=== PATIENT | female | born 1970 | race Caucasian/White ===

== ENCOUNTER → 2016-04-27 | Outpatient (CLI) | payer MEDICARE, MEDICAID, OTHER ==
[~2016-04-27] MED LIST: GABA-279 PO; GABA300C3 PO; NUCY75TA8 PO; TYLE1TAB5 PO
--- NOTE | 2016-04-29 00:39 | ECWPNPC ---
PATIENT NAME: HAZEL STANTON : 1970 GENDER: FEMALE VISIT DATE: 04/27/2016 DISCHARGE DATE: 04/27/16 1119 VISIT LOCKED DATE TIME: PHYSICIAN: IVY SILVERMAN RESOURCE: IVY SILVERMAN REASON FOR APPOINTMENT 1. RIGHT SHOULDER PAIN HISTORY OF PRESENT ILLNESS HISTORY OF PRESENT ILLNESS: PAIN THE PATIENT DESCRIBES THE PAIN... 45 YEAR OLD FEMALE PATIENT WITH HISTORY OF CHRONIC SHOULDER PAIN. PATIENT DESCRIBES THE PAIN ACHING, SHARP, THROBBING AND HAVING IT ALL THE TIME WITH A PAIN SCORE OF 10/10. PATIENT RECEIVED TRIGGER POINT INJECTIONS ON 03/30/16 AND REPORTS ONLY HAVING RELIEF FOR A FEW DAYS. MRS. STANTON STATES THAT A FEW DAYS AFTER THE INJECTION THE PAIN RETURNED AND BECAME VERY SEVERE AND HAS NOT HAD RELIEF SINCE. PATIENT REPORTS NOT GETTING RELIEF FROM THE INTERVENTIONS OR MEDICATIONS AND REPORTS HAVING A VERY DIFFICULT TIME SLEEPING DUE TO THE PAIN. CURRENTLY THE PATIENT IS USING NUCYNTA, GABAPENTIN, TYLENOL AND OXYCODONE AND STATES THAT IT IS NOT GIVING RELIEF FOR THE RIGHT SHOULDER. MRS. STANTON STATES THAT ANY TYPE OF MOVEMENT INCREASES THE PAIN AND IT IS VERY DIFFICULT FOR THE PATIENT TO GET COMFORTABLE. PATIENT DENIES UNEXPLAINABLE WEIGHT LOSS, FEVER, CHILLS, NEW CHANGES ON HER URINARY OR BOWEL CONTROL. FALL RISK SCREENING: SCREENING :NO FALLS IN THE PAST YEAR CURRENT MEDICATIONS TAKING CYMBALTA 30 MG CAPSULE DELAYED RELEASE PARTICLES 1 CAPSULE ORALLY ONCE A DAY, NOTES: 03/30/16 0600 TAKING GABAPENTIN 300 MG TABLET 1 TAB ORALLY QHS, NOTES: 03/29/161999 TAKING TIZANIDINE HCL 2 MG TABLET 1 TABLET NEEDED ORALLY BEFORE BEDTIME MAY REPEAT 4 HRS LATER MDD2, NOTES: 03/29/16 0130 TAKING TYLENOL PM EXTRA STRENGTH 500-25 MG TABLET 1 TABLET AT BEDTIME NEEDED ORALLY ONCE A DAY, NOTES: 03/29/161999 TAKING OXYCODONE-ACETAMINOPHEN 7.5-325 MG TABLET 1 TABLET NEEDED FOR PAIN ORALLY FOR PAIN EVERY 8 HRS MDD3, NOTES: 03/30/16 0900 TAKING SOMA 350 MG TABLET 1 TABLET NEEDED ORALLY Q8H PRN MDD3 TAKING NUCYNTA 75 MG TABLET 1 TABLET ORALLY THREE TIMES DAILY NEEDED TAKING DICLOFENAC SODIUM CR COMPOUND CREAM TOPICALLY 3-4 X/DAY, NOTES: COMPOUND CREAM MEDICATION LIST REVIEWED AND RECONCILED WITH THE PATIENT PAST MEDICAL HISTORY CRPS LEFT WRIST AND FOREARM UTERINE FIBROIDS ALLERGIES PENICILLIN (FOR ALLERGIES USE ONLY): RASH ULTRACET: ITCHING RHINOCORT NASAL: SWELLING SURGICAL HISTORY DCS 2006 GASTRIC BYPASS, TUBAL,,LSO,FIBROIDS DCS RE- PLACEMENT 10/28/15 FAMILY HISTORY NO FAMILY HISTORY DOCUMENTED. SOCIAL HISTORY GENERAL: TOBACCO USE ARE YOU A:CURRENT SMOKER HOW MANY CIGARETTES A DAY DO YOU SMOKE?21-30 HOW SOON AFTER YOU WAKE UP DO YOU SMOKE YOUR FIRST CIGARETTE?31-60 MIN HOW OFTEN DO YOU SMOKE CIGARETTES?EVERY DAY PATIENT COUNSELED ON THE DANGERS OF TOBACCO USE AND URGED TO QUIT: CONCELED ON THE IMPORTANCE OF QUITTING. PT STATES SHE IS NOT READY AT THIS TIME ARE YOU INTERESTED IN QUITTING?NOT READY TO QUIT LEARNING BARRIERS / SPECIAL NEEDS ORIENTED TO PLAN OF CARE: PATIENT, PAIN MANAGEMENT PATIENT, ORIENTED TO PLAN OF CARE: PATIENT, PAIN MANAGEMENT PATIENT. NEW PATIENT PAIN DIARY TODAY'S VISITNOTES FROM 0-10, WHAT LEVEL IS YOUR PAIN TODAY?0 PAIN CLINIC PFS, CLERGY, PUBLIC HEALTH REFERRALS PFS REFERRAL NEEDED?NO CLERGY REFERRAL NEEDED?NO PUBLIC HEALTH REFERRAL NEEDED?NO WAS THE PROVIDER NOTIFIED OF ANY PERTINENT INFO?NO PFS REFERRAL NEEDED?NO CLERGY REFERRAL NEEDED?NO PUBLIC HEALTH REFERRAL NEEDED?NO WAS THE PROVIDER NOTIFIED OF ANY PERTINENT INFO?NO HOSPITALIZATION/MAJOR DIAGNOSTIC PROCEDURE SURG RELATED REVIEW OF SYSTEMS CONSTITUTIONAL: ANY CHANGE IN YOUR MEDICAL CONDITION? NO . CHILLS NO . FEVER NO . INFECTION: DO YOU HAVE NEW INFECTIONS? NO . DO YOU HAVE HISTORY OF MRSA? NO . MUSCULOSKELETAL: ANY NEW PATTERNS OF PAIN OR NUMBNESS? YES BILAT NECK AND RIGHT SHOULDER RADIATING DOWN RIGHT BACK . GASTROENTEROLOGY: ANY NEW CHANGE IN BOWEL CONTROL? NO . GENITOURINARY: ANY NEW CHANGE IN BLADDER CONTROL? NO . IS THERE A CHANCE YOU COULD BE ? NO . HEMATOLOGY/LYMPH: DO YOU TAKE ANY BLOOD THINNERS? (FOR EXAMPLE- COUMADIN, PLAVIX, AGGRENOX, PLATEL, PRADAXA, OR XARELTO) NO . WHEN WAS YOUR LAST DOSE? DATE: TIME: . NEUROLOGY: HAVE YOU FALLEN IN THE PAST 6 MONTHS? NO . ANY NEW EXTREMITY NUMBNESS OR WEAKNESS? NO . CARDIOLOGY: DO YOU HAVE A PACEMAKER OR DEFIBRILLATOR? NO . RESPIRATORY: HAVE YOU BEEN SICK IN THE PAST WEEK? NO . FEVER NO . FLU LIKE SYMPTOMS? NO . COUGH NO . INTEGUMENTARY: DO YOU HAVE ANY RASHES OR OPEN SORES? NO . ALLERGIC/IMMUNO: ARE YOU ALLERGIC TO SHELLFISH OR IV DYE? NO . ANY NEW ALLERGIES? NO . PSYCHIATRIC: DO YOU HAVE THOUGHTS OF HURTING YOURSELF OR SOMEONE ELSE? NO . ARE YOU ABUSED, NEGLECTED, OR IN AN UNSAFE ENVIRONMENT? NO . ENDOCRINOLOGY: ARE YOU DIABETIC? NO . OTHER: DO YOU NEED ANY PRESCRIPTIONS? YES SOMA, PERCOCET . IF YES, PLEASE LIST: ____ . ANY NEW PROBLEMS WITH YOUR MEDICATIONS? NO . WHEN DID YOU LAST EAT? ____ . WHEN DID YOU LAST DRINK? ____ . WHAT DID YOU LAST DRINK? ____ . NAME OF PERSON DRIVING YOU HOME? ____ . DO YOU HAVE ANY OTHER QUESTIONS OR CONCERNS NO . REVIEWED BY: PROVIDER: IVY SILVERMAN MD . VITAL SIGNS WT 152 LBS, HT 66 IN, BMI 24.53 INDEX, BP 152/104 MM HG, REPEAT BP 130/82 MM HG, HR 102 /MIN, RR 18 /MIN, TEMP 96.0 F, OXYGEN SAT % 98, NA INITIALS TL 0928, REVIEWED BY: CARLI BP, PT STATES SHE IS A LOT PAIN- TL. EXAMINATION : PATIENT IS ALERT O X 3 AND COOPERATIVE. TENDERNESS IN RIGHT CERVICAL AREA AND RIGHT SHOULDER AREA. PATIENT ABLE TO ABDUCT RIGHT SHOULDER 90 DEGREE AND LEFT 120 DEGREE. BANDS OF TISSUE, RESTRICTION OF MOVEMENT AND PRESENCE OF TRIGGER POINTS IN THE RIGHT SHOULDER AREA. PENDING MRI/CT OF THE RIGHT SHOULDER. ASSESSMENTS MYALGIA - M79.1 (PRIMARY) TREATMENT MYALGIA REFILL CYMBALTA CAPSULE DELAYED RELEASE PARTICLES, 30 MG, 1 CAPSULE, ORALLY, BID FOR PAIN, 30 DAY(S), 60, REFILLS 2, NOTES: 03/30/16 0600 REFILL GABAPENTIN TABLET, 300 MG, 1 TAB, ORALLY, QHS FOR PAIN, 30 DAY(S), 30, REFILLS 2, NOTES: 03/29/16 2000 REFILL TIZANIDINE HCL TABLET, 4 MG, 1 TABLET NEEDED, ORALLY, BEFORE BEDTIME MAY REPEAT 4 HRS LATER MDD2, 30 DAY(S), 50, REFILLS 1, NOTES: 03/29/16 0130 REFILL OXYCODONE-ACETAMINOPHEN TABLET, 10-325 MG, 1 TABLET NEEDED FOR PAIN, ORALLY, EVERY 8 HRS MDD3, 30 DAYS, 80, REFILLS 0, NOTES: 03/30/16 0900 REFILL SOMA TABLET, 350 MG, 1 TABLET NEEDED, ORALLY, BEFORE BEDTIME NEEDED FOR SPASMS AND PAIN, 30 DAY(S), 20, REFILLS 0 REFILL NUCYNTA TABLET, 75 MG, 1 TABLET, ORALLY, THREE TIMES DAILY NEEDED NOTES: WE DISCUSSED SEVERAL ISSUES WITH MRS. STANTON'S PAIN MANAGEMENT CASE. AT THIS TIME THE PATIENT WILL CONTINUE WITH THE SAME MEDICATION REGIME BEFORE. PATIENT DENIES ABUSE OF MEDICATION, DENIES USE OF ILLEGAL SUBSTANCES, AND STATES THAT SHE IS ONLY USING THE MEDICATION FOR PAIN MANAGEMENT. URINE TOXICOLOGY REPORT DONE ONE 03/10/16 SHOWS CONSISTENT RESULTS WITH THE PATIENTS MEDICATION LIST. PATIENT REPORTS ONLY GETTING 2-3 DAYS OF RELIEF WITH THE TRIGGER POINT INJECTION. I WOULD LIKE TO REQUEST AUTHORIZATION FOR BOTOX IN THE RIGHT SHOULDER TO SEE IF IT WILL GIVE THE PATIENT LONGER LASTING RELIEF. WE DISCUSSED THE RISKS, BENEFITS, AND ALTERNATIVES TO THE INJECTION AND THE PATIENT WOULD LIKE TO PROCEED. I WOULD ALSO LIKE THE PATIENT TO HAVE AN MRI DONE OF THE RIGHT SHOULDER. PATIENT WILL ALSO START PHYSICAL THERAPY TO SEE IF THAT WILL ASSIST WITH THE MUSCLE SPASMS THROUGHOUT THE BACK. I AM ALSO GOING TO SPEAK WITH THE RISK INVESTIGATOR FROM [employer] TO SEE HOW OFTEN A PATIENT CAN GET BOTOX DUE TO THE PATIENT RECEIVING BOTOX FOR HER MIGRAINES. INSTRUCTIONS WERE GIVEN, QUESTIONS WERE ANSWERED, PATIENT REPORTS UNDERSTANDING AND AGREES WITH THE PLAN. I, ALEC MOSELEY, DOCUMENTED THE ABOVE INFORMATION ACTING A SCRIBE FOR DR. SILVERMAN. I HAVE REVIEWED THE ABOVE DOCUMENT, WRITTEN BY ALEC ZAMBRANO AND I VERIFY THAT IT IS ACCURATE. PROCEDURE CODES FA211 ESTABILISHED PATIENT [facility] FACILITY CHARGE G8427 DOC MEDS VERIFIED W/PT OR RE G8730 PAIN ASSESS POS TOOL F/U PLAN DOC FOLLOW UP 4 WEEKS ELECTRONICALLY SIGNED BY IVY SILVERMAN MD ON 04/28/2016 AT 08:23 PM EST DISCLAIMER : THIS IS A VISIT SUMMARY EXTRACTED FROM THE [employer] CHART. IT IS NOT A COPY OF THE [employer] PROGRESS NOTE. EVAN
== END ==
LOC: M PAIN 09:20
PROVIDERS: ATTEND Anesthesiology
DX: Z09 Encounter for follow-up examination after completed treatment for conditions other than malignant neoplasm (principal); M79.1 Myalgia; G89.29 Other chronic pain; M25.511 Pain in right shoulder; F17.200 Nicotine dependence, unspecified, uncomplicated; Z88.0 Allergy status to penicillin; Z88.8 Allergy status to other drugs, medicaments and biological substances; Z79.891 Long term (current) use of opiate analgesic; Z79.899 Other long term (current) drug therapy

== ENCOUNTER → 2016-05-21 | Outpatient (CLI) | payer MEDICARE, MEDICAID, OTHER ==
--- NOTE | 2016-05-22 00:55 | ECWPNPC ---
PATIENT NAME: HAZEL STANTON : 1970 GENDER: FEMALE VISIT DATE: 05/21/2016 DISCHARGE DATE: 05/21/16 1312 VISIT LOCKED DATE TIME: PHYSICIAN: BRANDON CAMPBELL RESOURCE: BRANDON CAMPBELL REASON FOR APPOINTMENT 1. RIGHT SHOULDER HISTORY OF PRESENT ILLNESS HISTORY OF PRESENT ILLNESS: PAIN THE PATIENT DESCRIBES THE PAIN... THE PATIENT DESCRIBES THE PAIN... 45 YEAR OLD FEMALE PATIENT WITH HISTORY OF CHRONIC SHOULDER PAIN. PATIENT DESCRIBES THE PAIN ACHING, SHARP, THROBBING AND HAVING IT ALL THE TIME WITH A PAIN SCORE OF 10/10.THIS PAIN BEGAN AFTER REVISION OF DCS OCTOBER 2015. PATIENT RECEIVED TRIGGER POINT INJECTIONS ON 03/30/16 AND REPORTS ONLY HAVING RELIEF FOR A FEW DAYS. MRS. STANTON STATES THAT A FEW DAYS AFTER THE INJECTION THE PAIN RETURNED AND BECAME VERY SEVERE AND HAS NOT HAD RELIEF SINCE. PATIENT REPORTS NOT GETTING RELIEF FROM THE INTERVENTIONS OR MEDICATIONS AND REPORTS HAVING A VERY DIFFICULT TIME SLEEPING DUE TO THE PAIN. CURRENTLY THE PATIENT IS USING NUCYNTA, GABAPENTIN, TYLENOL AND OXYCODONE AND STATES THAT IT IS NOT GIVING RELIEF FOR THE RIGHT SHOULDER. STARTED OXYCODONE 10/325 LAST MOS. AND PATIENT HAD VOMITING WITH IT SO SHE STOPPED THIS.MRS. STANTON STATES THAT ANY TYPE OF MOVEMENT INCREASES THE PAIN AND IT IS VERY DIFFICULT FOR THE PATIENT TO GET COMFORTABLE. PATIENT DENIES UNEXPLAINABLE WEIGHT LOSS, FEVER, CHILLS, NEW CHANGES ON HER URINARY OR BOWEL CONTROL. REPORTING IMPROVEMENT WITH PAIN WITH SOMA. FALL RISK SCREENING: SCREENING :NO FALLS IN THE PAST YEAR CURRENT MEDICATIONS TAKING TYLENOL PM EXTRA STRENGTH 500-25 MG TABLET 1 TABLET AT BEDTIME NEEDED ORALLY ONCE A DAY, NOTES: 03/29/161999 TAKING DICLOFENAC SODIUM CR COMPOUND CREAM TOPICALLY 3-4 X/DAY, NOTES: COMPOUND CREAM TAKING CYMBALTA 30 MG CAPSULE DELAYED RELEASE PARTICLES 1 CAPSULE ORALLY BID FOR PAIN, NOTES: 03/30/16 0600 TAKING GABAPENTIN 300 MG TABLET 1 TAB ORALLY QHS FOR PAIN, NOTES: 03/29/161999 TAKING TIZANIDINE HCL 4 MG TABLET 1 TABLET NEEDED ORALLY BEFORE BEDTIME MAY REPEAT 4 HRS LATER MDD2, NOTES: 03/29/16 0130 TAKING OXYCODONE-ACETAMINOPHEN 10-325 MG TABLET 1 TABLET NEEDED FOR PAIN ORALLY EVERY 8 HRS MDD3, NOTES: 12/19/16 0900 TAKING SOMA 350 MG TABLET 1 TABLET NEEDED ORALLY BEFORE BEDTIME NEEDED FOR SPASMS AND PAIN TAKING NUCYNTA 75 MG TABLET 1 TABLET ORALLY THREE TIMES DAILY NEEDED FOR PAIN MDD3 MEDICATION LIST REVIEWED AND RECONCILED WITH THE PATIENT PAST MEDICAL HISTORY CRPS LEFT WRIST AND FOREARM UTERINE FIBROIDS ALLERGIES PENICILLIN (FOR ALLERGIES USE ONLY): RASH ULTRACET: ITCHING RHINOCORT NASAL: SWELLING SOCIAL HISTORY GENERAL: TOBACCO USE ARE YOU A:NONSMOKER LEARNING BARRIERS / SPECIAL NEEDS ORIENTED TO PLAN OF CARE: PATIENT, PAIN MANAGEMENT PATIENT, ORIENTED TO PLAN OF CARE: PATIENT, PAIN MANAGEMENT PATIENT. NEW PATIENT PAIN DIARY TODAY'S VISITNOTES FROM 0-10, WHAT LEVEL IS YOUR PAIN TODAY?0 PAIN CLINIC PFS, CLERGY, PUBLIC HEALTH REFERRALS PFS REFERRAL NEEDED?NO CLERGY REFERRAL NEEDED?NO PUBLIC HEALTH REFERRAL NEEDED?NO WAS THE PROVIDER NOTIFIED OF ANY PERTINENT INFO?NO PFS REFERRAL NEEDED?NO CLERGY REFERRAL NEEDED?NO PUBLIC HEALTH REFERRAL NEEDED?NO WAS THE PROVIDER NOTIFIED OF ANY PERTINENT INFO?NO REVIEW OF SYSTEMS CONSTITUTIONAL: ANY CHANGE IN YOUR MEDICAL CONDITION? NO . RECENT ILLNESS DENIES . CHILLS NO . FEVER NO . WEIGHT LOSS DENIES . INFECTION: DO YOU HAVE NEW INFECTIONS? NO . DO YOU HAVE HISTORY OF MRSA? NO . MUSCULOSKELETAL: ANY NEW PATTERNS OF PAIN OR NUMBNESS? NO . GASTROENTEROLOGY: ANY NEW CHANGE IN BOWEL CONTROL? NO . GENITOURINARY: ANY NEW CHANGE IN BLADDER CONTROL? NO . IS THERE A CHANCE YOU COULD BE ? NO . HEMATOLOGY/LYMPH: DO YOU TAKE ANY BLOOD THINNERS? (FOR EXAMPLE- COUMADIN, PLAVIX, AGGRENOX, PLATEL, PRADAXA, OR XARELTO) NO . WHEN WAS YOUR LAST DOSE? DATE: TIME: . NEUROLOGY: HAVE YOU FALLEN IN THE PAST 6 MONTHS? NO . ANY NEW EXTREMITY NUMBNESS OR WEAKNESS? NO . CARDIOLOGY: DO YOU HAVE A PACEMAKER OR DEFIBRILLATOR? NO . CHEST PAIN DENIES . SHORTNESS OF BREATH DENIES . RESPIRATORY: HAVE YOU BEEN SICK IN THE PAST WEEK? NO . FEVER NO . FLU LIKE SYMPTOMS? NO . COUGH NO, DENIES . SHORTNESS OF BREATH DENIES . INTEGUMENTARY: DO YOU HAVE ANY RASHES OR OPEN SORES? NO . ALLERGIC/IMMUNO: ARE YOU ALLERGIC TO SHELLFISH OR IV DYE? NO . ANY NEW ALLERGIES? NO . PSYCHIATRIC: DO YOU HAVE THOUGHTS OF HURTING YOURSELF OR SOMEONE ELSE? NO . ARE YOU ABUSED, NEGLECTED, OR IN AN UNSAFE ENVIRONMENT? NO . ENDOCRINOLOGY: ARE YOU DIABETIC? NO . OTHER: DO YOU NEED ANY PRESCRIPTIONS? YES, . IF YES, PLEASE LIST: PERCOCETS, CARISOPRADOL 350MG . ANY NEW PROBLEMS WITH YOUR MEDICATIONS? YES, PERCOCETS 10/325 MAKE HER UPSET AND VOMIT. CAN THEY BE DECREASED TO 7.5/325MG? . WHEN DID YOU LAST EAT? ____ . WHEN DID YOU LAST DRINK? ____ . WHAT DID YOU LAST DRINK? ____ . NAME OF PERSON DRIVING YOU HOME? ____ . DO YOU HAVE ANY OTHER QUESTIONS OR CONCERNS NO . REVIEWED BY: PROVIDER: BRANDON FREIRE . VITAL SIGNS WT 142 LBS, HT 66 IN, BMI 22.92 INDEX, BP 136/82 MM HG, HR 74 /MIN, RR 16 /MIN, TEMP 96.2 F, OXYGEN SAT % 98%, NA INITIALS CM. EXAMINATION GENERAL EXAMINATION: LUNGS:LUNG SOUNDS ARE CLEAR. HEART:HEART RATE REGULAR. MUSCULOSKELETAL:*PAIN WITH LIGHT PALPATION RIGHT SHOULDE.POSITIVE FOR TRIGGER POINT RIGHT TRAPEZIUS AND RIGHT STERNOCLEIDOMASTOID.PAIN IN THIS AREA IS INCREASED WITH ROJM RIGHT ARM AND NECK.. ASSESSMENTS PAIN IN RIGHT SHOULDER - M25.511 (PRIMARY) MYOFASCIAL PAIN - M79.1 CHRONIC PRESCRIPTION OPIATE USE - Z79.891 TREATMENT PAIN IN RIGHT SHOULDER STOP TIZANIDINE HCL TABLET, 4 MG, 1 TABLET NEEDED, ORALLY, BEFORE BEDTIME MAY REPEAT 4 HRS LATER MDD2, NOTES: 03/29/16 0130 REFILL SOMA TABLET, 350 MG, 1 TABLET NEEDED, ORALLY, Q8H PRN MDD3, 30 DAY(S), 90, REFILLS 2 START PERCOCET TABLET, 7.5-325 MG, 1, ORALLY, EVERY 8H PRN MDD3, 30 DAY(S), 60, REFILLS [address]-SHOULDER WITHOUT [id number] PROCEDURE CODES FA211 ESTABILISHED PATIENT [facility] FACILITY CHARGE G8730 PAIN ASSESS POS TOOL F/U PLAN DOC G8427 DOC MEDS VERIFIED W/PT OR RE FOLLOW UP 4 WEEKS ELECTRONICALLY SIGNED BY MOUNA CHEN ON 05/21/2016 AT 01:28 PM EST DISCLAIMER : THIS IS A VISIT SUMMARY EXTRACTED FROM THE [employer] CHART. IT IS NOT A COPY OF THE [employer] PROGRESS NOTE. EVAN
== END ==
LOC: M PAIN 11:20
PROVIDERS: ATTEND Nurse Practitioner Family
DX: Z09 Encounter for follow-up examination after completed treatment for conditions other than malignant neoplasm (principal); G89.29 Other chronic pain; M25.511 Pain in right shoulder; M79.1 Myalgia; Z88.0 Allergy status to penicillin; Z88.8 Allergy status to other drugs, medicaments and biological substances; Z79.891 Long term (current) use of opiate analgesic; Z79.899 Other long term (current) drug therapy

== ENCOUNTER → 2016-05-21 | Outpatient (CLI) | payer MEDICARE, MEDICAID ==
--- NOTE | 2016-05-22 00:56 | ECWPNPC ---
PATIENT NAME: HAZEL STANTON : 1970 GENDER: FEMALE VISIT DATE: 05/21/2016 DISCHARGE DATE: 05/21/16 1225 VISIT LOCKED DATE TIME: PHYSICIAN: IVY SILVERMAN RESOURCE: IVY SILVERMAN REASON FOR APPOINTMENT 1. W/C HISTORY OF PRESENT ILLNESS HISTORY OF PRESENT ILLNESS: PAIN THE PATIENT DESCRIBES THE PAIN... FALL RISK SCREENING: SCREENING :NO FALLS IN THE PAST YEAR CURRENT MEDICATIONS TAKING TYLENOL PM EXTRA STRENGTH 500-25 MG TABLET 1 TABLET AT BEDTIME NEEDED ORALLY ONCE A DAY, NOTES: 03/29/161999 TAKING DICLOFENAC SODIUM CR COMPOUND CREAM TOPICALLY 3-4 X/DAY, NOTES: COMPOUND CREAM TAKING CYMBALTA 30 MG CAPSULE DELAYED RELEASE PARTICLES 1 CAPSULE ORALLY BID FOR PAIN, NOTES: 03/30/16 0600 TAKING GABAPENTIN 300 MG TABLET 1 TAB ORALLY QHS FOR PAIN, NOTES: 03/29/161999 TAKING TIZANIDINE HCL 4 MG TABLET 1 TABLET NEEDED ORALLY BEFORE BEDTIME MAY REPEAT 4 HRS LATER MDD2, NOTES: 03/29/16 0130 TAKING OXYCODONE-ACETAMINOPHEN 10-325 MG TABLET 1 TABLET NEEDED FOR PAIN ORALLY EVERY 8 HRS MDD3, NOTES: 03/30/16 0900 TAKING SOMA 350 MG TABLET 1 TABLET NEEDED ORALLY BEFORE BEDTIME NEEDED FOR SPASMS AND PAIN TAKING NUCYNTA 75 MG TABLET 1 TABLET ORALLY THREE TIMES DAILY NEEDED MEDICATION LIST REVIEWED AND RECONCILED WITH THE PATIENT PAST MEDICAL HISTORY CRPS LEFT WRIST AND FOREARM UTERINE FIBROIDS ALLERGIES PENICILLIN (FOR ALLERGIES USE ONLY): RASH ULTRACET: ITCHING RHINOCORT NASAL: SWELLING SOCIAL HISTORY GENERAL: TOBACCO USE ARE YOU A:NONSMOKER LEARNING BARRIERS / SPECIAL NEEDS ORIENTED TO PLAN OF CARE: PATIENT, PAIN MANAGEMENT PATIENT, ORIENTED TO PLAN OF CARE: PATIENT, PAIN MANAGEMENT PATIENT. NEW PATIENT PAIN DIARY TODAY'S VISITNOTES FROM 0-10, WHAT LEVEL IS YOUR PAIN TODAY?0 PAIN CLINIC PFS, CLERGY, PUBLIC HEALTH REFERRALS PFS REFERRAL NEEDED?NO CLERGY REFERRAL NEEDED?NO PUBLIC HEALTH REFERRAL NEEDED?NO WAS THE PROVIDER NOTIFIED OF ANY PERTINENT INFO?NO PFS REFERRAL NEEDED?NO CLERGY REFERRAL NEEDED?NO PUBLIC HEALTH REFERRAL NEEDED?NO WAS THE PROVIDER NOTIFIED OF ANY PERTINENT INFO?NO REVIEW OF SYSTEMS CONSTITUTIONAL: ANY CHANGE IN YOUR MEDICAL CONDITION? NO . CHILLS NO . FEVER NO . INFECTION: DO YOU HAVE NEW INFECTIONS? NO . DO YOU HAVE HISTORY OF MRSA? NO . MUSCULOSKELETAL: ANY NEW PATTERNS OF PAIN OR NUMBNESS? NO . GASTROENTEROLOGY: ANY NEW CHANGE IN BOWEL CONTROL? NO . GENITOURINARY: ANY NEW CHANGE IN BLADDER CONTROL? NO . IS THERE A CHANCE YOU COULD BE ? NO . HEMATOLOGY/LYMPH: DO YOU TAKE ANY BLOOD THINNERS? (FOR EXAMPLE- COUMADIN, PLAVIX, AGGRENOX, PLATEL, PRADAXA, OR XARELTO) NO . WHEN WAS YOUR LAST DOSE? DATE: TIME: . NEUROLOGY: HAVE YOU FALLEN IN THE PAST 6 MONTHS? NO . ANY NEW EXTREMITY NUMBNESS OR WEAKNESS? NO . CARDIOLOGY: DO YOU HAVE A PACEMAKER OR DEFIBRILLATOR? NO . RESPIRATORY: HAVE YOU BEEN SICK IN THE PAST WEEK? NO . FEVER NO . FLU LIKE SYMPTOMS? NO . COUGH NO . INTEGUMENTARY: DO YOU HAVE ANY RASHES OR OPEN SORES? NO . ALLERGIC/IMMUNO: ARE YOU ALLERGIC TO SHELLFISH OR IV DYE? NO . ANY NEW ALLERGIES? NO . PSYCHIATRIC: DO YOU HAVE THOUGHTS OF HURTING YOURSELF OR SOMEONE ELSE? NO . ARE YOU ABUSED, NEGLECTED, OR IN AN UNSAFE ENVIRONMENT? NO . ENDOCRINOLOGY: ARE YOU DIABETIC? NO . OTHER: DO YOU NEED ANY PRESCRIPTIONS? NO . IF YES, PLEASE LIST: ____ . ANY NEW PROBLEMS WITH YOUR MEDICATIONS? NO . WHEN DID YOU LAST EAT? ____ . WHEN DID YOU LAST DRINK? ____ . WHAT DID YOU LAST DRINK? ____ . NAME OF PERSON DRIVING YOU HOME? ____ . DO YOU HAVE ANY OTHER QUESTIONS OR CONCERNS YES, WANT TO DROP PERCOCETS DOWN TO 7,5/325 MG THE 10'S MAKE ME VOMIT.&NBSP;. REVIEWED BY: PROVIDER: . VITAL SIGNS WT 142 LBS, HT 66 IN, BMI 22.92 INDEX, BP 136/82 MM HG, HR 74 /MIN, RR 16 /MIN, TEMP 96.2 F, OXYGEN SAT % 98, NA INITIALS TL 1023, REVIEWED BY: DENISSE. ASSESSMENTS MYALGIA - M79.1 TREATMENT MYALGIA REFILL NUCYNTA TABLET, 75 MG, 1 TABLET, ORALLY, THREE TIMES DAILY NEEDED FOR PAIN MDD3, 30 DAYS, 30, REFILLS 0 PROCEDURE CODES FA211 ESTABILISHED PATIENT [facility] CHARGE ELECTRONICALLY SIGNED BY IVY SILVERMAN MD ON 05/21/2016 AT 12:24 PM EST DISCLAIMER : THIS IS A VISIT SUMMARY EXTRACTED FROM THE [employer] CHART. IT IS NOT A COPY OF THE [employer] PROGRESS NOTE. EVAN
== END ==
LOC: M PAIN 10:00
PROVIDERS: ATTEND Anesthesiology
DX: M79.1 Myalgia (principal); G89.29 Other chronic pain; M25.511 Pain in right shoulder; Z79.891 Long term (current) use of opiate analgesic; Z79.899 Other long term (current) drug therapy; Z88.0 Allergy status to penicillin; Z88.8 Allergy status to other drugs, medicaments and biological substances

== ENCOUNTER → 2016-06-16 | Outpatient (CLI) | payer OTHER, MEDICARE, MEDICAID ==
--- NOTE | 2016-06-27 23:39 | ECWPNPC ---
PATIENT NAME: HAZEL STANTON : 1970 GENDER: FEMALE VISIT DATE: 06/16/2016 DISCHARGE DATE: 06/16/16 1015 VISIT LOCKED DATE TIME: PHYSICIAN: IVY SILVERMAN RESOURCE: IVY SILVERMAN REASON FOR APPOINTMENT 1. W/C LEFT WRIST, FOREARM, NECK, MIGRAINES HISTORY OF PRESENT ILLNESS HISTORY OF PRESENT ILLNESS: PAIN THE PATIENT DESCRIBES THE PAIN... 45 YEAR OLD FEMALE PATIENT WITH HISTORY OF CHRONIC LEFT WRIST, FOREARM, NECK, AND MIGRAINES PAIN. PATIENT DESCRIBES THE PAIN ACHING, AND THROBBING WITH A PAIN SCORE OF 8/10 ON TODAY'S VISIT. PATIENT WAS INJURED IN A WORK RELATED INJURY ON 06/19/2003 WORKING FOR [employer], WHEN SHE TRIPPED AND FELLING INJURING HER LEFT WRIST, AND FOREARM. PATIENT REPORTS THAT SHE STARTED TO HAVE NECK PAIN AFTER THE DCS WAS PUT IN. PATIENT STATES THAT HER NECK ON THE LEFT SIDE HURTS THE MOST WITH PAIN RADIATING TO THE TOP OF HER HEAD. PATIENT STATES THAT SHE WAS GETTING ABOUT 30 HEADACHES A MONTH AND SINCE SHE HAS BEEN GETTING BOTOX INJECTIONS HER HEADACHES HAS GONE DOWN TO 13 A MONTH. PATIENT REPORTS THAT WHEN SHE GETS A HEADACHE SHE SUFFERS FROM NAUSEA AND LIGHTS HURTS HER EYES. PATIENT REPORTS THAT SHE HAS TRIED AMITRIPTYLINE, GABAPENTIN, TOPAMAX, TOPIRAMATE, ACETAMINOPHEN, AND RIZATRIPTAN WITHOUT ANY SUCCESS OF RELIEF FROM HEADACHES AND MIGRAINES. PATIENT REPORTS THAT SHE CAN NOT TAKE IBUPROFEN AND ASPIRIN. , PATIENT DENIES UNEXPLAINABLE WEIGHT LOSS, FEVER, CHILLS, NEW CHANGES ON HER URINARY OR BOWEL CONTROL. FALL RISK SCREENING: SCREENING :NO FALLS IN THE PAST YEAR CURRENT MEDICATIONS TAKING TYLENOL PM EXTRA STRENGTH 500-25 MG TABLET 1 TABLET AT BEDTIME NEEDED ORALLY ONCE A DAY, NOTES: 03/29/161999 TAKING DICLOFENAC SODIUM CR COMPOUND CREAM TOPICALLY 3-4 X/DAY, NOTES: COMPOUND CREAM TAKING CYMBALTA 30 MG CAPSULE DELAYED RELEASE PARTICLES 1 CAPSULE ORALLY BID FOR PAIN, NOTES: 03/30/16 0600 TAKING GABAPENTIN 300 MG TABLET 1 TAB ORALLY QHS FOR PAIN, NOTES: 03/29/161999 TAKING NUCYNTA 75 MG TABLET 1 TABLET ORALLY THREE TIMES DAILY NEEDED FOR PAIN MDD3 TAKING SOMA 350 MG TABLET 1 TABLET NEEDED ORALLY Q8H PRN MDD3 TAKING PERCOCET 7.5-325 MG TABLET 1 ORALLY EVERY 8H PRN MDD3 DISCONTINUED OXYCODONE-ACETAMINOPHEN 10-325 MG TABLET 1 TABLET NEEDED FOR PAIN ORALLY EVERY 8 HRS MDD3, NOTES: 03/30/16 0900 MEDICATION LIST REVIEWED AND RECONCILED WITH THE PATIENT PAST MEDICAL HISTORY CRPS LEFT WRIST AND FOREARM UTERINE FIBROIDS ALLERGIES PENICILLIN (FOR ALLERGIES USE ONLY): RASH ULTRACET: ITCHING RHINOCORT NASAL: SWELLING SURGICAL HISTORY DCS 2006 GASTRIC BYPASS, TUBAL,,LSO,FIBROIDS DCS RE- PLACEMENT 10/28/15 FAMILY HISTORY NO FAMILY HISTORY DOCUMENTED. SOCIAL HISTORY GENERAL: TOBACCO USE ARE YOU A:NONSMOKER LEARNING BARRIERS / SPECIAL NEEDS ORIENTED TO PLAN OF CARE: PATIENT, PAIN MANAGEMENT PATIENT, ORIENTED TO PLAN OF CARE: PATIENT, PAIN MANAGEMENT PATIENT. NEW PATIENT PAIN DIARY TODAY'S VISITNOTES FROM 0-10, WHAT LEVEL IS YOUR PAIN TODAY?0 PAIN CLINIC PFS, CLERGY, PUBLIC HEALTH REFERRALS PFS REFERRAL NEEDED?NO CLERGY REFERRAL NEEDED?NO PUBLIC HEALTH REFERRAL NEEDED?NO WAS THE PROVIDER NOTIFIED OF ANY PERTINENT INFO?NO PFS REFERRAL NEEDED?NO CLERGY REFERRAL NEEDED?NO PUBLIC HEALTH REFERRAL NEEDED?NO WAS THE PROVIDER NOTIFIED OF ANY PERTINENT INFO?NO HOSPITALIZATION/MAJOR DIAGNOSTIC PROCEDURE SURG RELATED REVIEW OF SYSTEMS CONSTITUTIONAL: ANY CHANGE IN YOUR MEDICAL CONDITION? NO . CHILLS NO . FEVER NO . INFECTION: DO YOU HAVE NEW INFECTIONS? NO . DO YOU HAVE HISTORY OF MRSA? NO . MUSCULOSKELETAL: ANY NEW PATTERNS OF PAIN OR NUMBNESS? NO . GASTROENTEROLOGY: ANY NEW CHANGE IN BOWEL CONTROL? NO . GENITOURINARY: ANY NEW CHANGE IN BLADDER CONTROL? NO . IS THERE A CHANCE YOU COULD BE ? NO . HEMATOLOGY/LYMPH: DO YOU TAKE ANY BLOOD THINNERS? (FOR EXAMPLE- COUMADIN, PLAVIX, AGGRENOX, PLATEL, PRADAXA, OR XARELTO) NO . WHEN WAS YOUR LAST DOSE? DATE: TIME: . NEUROLOGY: HAVE YOU FALLEN IN THE PAST 6 MONTHS? NO . ANY NEW EXTREMITY NUMBNESS OR WEAKNESS? NO . CARDIOLOGY: DO YOU HAVE A PACEMAKER OR DEFIBRILLATOR? NO . RESPIRATORY: HAVE YOU BEEN SICK IN THE PAST WEEK? NO . FEVER NO . FLU LIKE SYMPTOMS? NO . COUGH NO . INTEGUMENTARY: DO YOU HAVE ANY RASHES OR OPEN SORES? NO . ALLERGIC/IMMUNO: ARE YOU ALLERGIC TO SHELLFISH OR IV DYE? NO . ANY NEW ALLERGIES? NO . PSYCHIATRIC: DO YOU HAVE THOUGHTS OF HURTING YOURSELF OR SOMEONE ELSE? NO . ARE YOU ABUSED, NEGLECTED, OR IN AN UNSAFE ENVIRONMENT? NO . ENDOCRINOLOGY: ARE YOU DIABETIC? NO . OTHER: DO YOU NEED ANY PRESCRIPTIONS? NO . IF YES, PLEASE LIST: ____ . ANY NEW PROBLEMS WITH YOUR MEDICATIONS? NO . WHEN DID YOU LAST EAT? ____ . WHEN DID YOU LAST DRINK? ____ . WHAT DID YOU LAST DRINK? ____ . NAME OF PERSON DRIVING YOU HOME? ____ . DO YOU HAVE ANY OTHER QUESTIONS OR CONCERNS YES, WOULD LIKE TO DISCUSS NUCYNTA . REVIEWED BY: PROVIDER: IVY SILVERMAN MD . VITAL SIGNS WT 140 LBS, HT 66 IN, BMI 22.59 INDEX, BP 138/69 MM HG, HR 79 /MIN, RR 16 /MIN, TEMP 96.1 F, OXYGEN SAT % 98, NA INITIALS TL 0850, REVIEWED BY: CM. EXAMINATION : PATIENT IS ALERT O X 3 AND COOPERATIVE. THERE IS TENDERNESS IN THE LEFT WRIST WHEN THE PATIENT BENDS HER WRIST. PATIENT IS ABLE TO ABDUCT HER ARMS ONLY TO SHOULDER LEVEL. PATIENT'S HAND TEMPERER IS REDUCED ON BOTH HANDS. THERE IS TENDERNESS IN THE CERVICAL PARASPINAL MUSCLE GROUP WITH BANDS OF TISSUES, RESTRICTION OF MOVEMENT, AND PRESENCE OF TRIGGER POINTS. PATIENT IS ABLE TO EXTEND HER NECK AT 30 DEGREES AND FLEX AT 50 DEGREES. ASSESSMENTS MYALGIA - M79.1 (PRIMARY) CHRONIC MIGRAINE WITHOUT AURA, NOT INTRACTABLE, WITHOUT STATUS MIGRAINOSUS - G43.709 LEFT UPPER EXTREMITY NEUROPATHY. TREATMENT MYALGIA REFILL NUCYNTA TABLET, 75 MG, 1 TABLET, ORALLY, THREE TIMES DAILY NEEDED FOR PAIN MDD3, 30 DAYS, 90, REFILLS 0 NOTES: WE DISCUSSED SEVERAL ISSUES WITH MS. STANTON'S PAIN MANAGEMENT CASE. AT THIS TIME I WILL REFILL NUCYNTA TODAY. PATIENT BROUGHT HER MEDICATION BOTTLES TO TODAY'S VISIT. I WILL REQUEST BOTOX INJECTIONS FOR THE PATIENT, WE DISCUSSED THE RISK, BENEFITS, AND ALTERNATIVES AND THE PATIENT WOULD LIKE TO PROCEED. PATIENT WILL BE BOOKED PENDING APPROVAL. PATIENT TO FOLLOW UP WITH ME IN 1 MONTH. INSTRUCTIONS WERE GIVEN, QUESTIONS WERE ANSWERED, PATIENT REPORTS UNDERSTANDING AND AGREES WITH THE PLAN. I, CHARITY BAH, DOCUMENTED THE ABOVE INFORMATION ACTING A SCRIBE FOR DR. SILVERMAN. I HAVE REVIEWED THE ABOVE DOCUMENT, WRITTEN BY CHARITY ZAMBRANO AND I VERIFY THAT IT IS ACCURATE. PROCEDURES PN WORKMANS' COMP OPINION IN YOUR OPINION, WAS THE INCIDENT THAT THE PATIENT DESCRIBED THE COMPETENT MEDICAL CAUSE OF THIS INJURY/ILLNESS? YES ARE THE PATIENT'S COMPLAINTS CONSISTENT WITH HIS/HER HISTORY OF THE INJURY/ILLNESS? YES IS THE PATIENT'S HISTORY OF THE INJURY/ILLNESS CONSISTENT WITH YOUR OBJECTIVE FINDING? YES WHAT IS THE PERCENTAGE OF TEMPORARY IMPAIRMENT? MODERATE TO MARKED = 66.7% IS THE PATIENT WORKING? NO DOCTOR ON SITE: IVY PRICE MD PROCEDURE CODES FA211 ESTABILISHED PATIENT [facility] FACILITY CHARGE G8730 PAIN ASSESS POS TOOL F/U PLAN DOC G8427 DOC MEDS VERIFIED W/PT OR RE DISPOSITION & COMMUNICATION FOLLOW UP 4 WEEKS, BOTOX PENDING APPROVAL ELECTRONICALLY SIGNED BY IVY SILVERMAN MD ON 06/27/2016 AT 09:57 PM EDT DISCLAIMER : THIS IS A VISIT SUMMARY EXTRACTED FROM THE [employer] CHART. IT IS NOT A COPY OF THE [employer] PROGRESS NOTE. EVAN
== END ==
LOC: M PAIN 08:40
PROVIDERS: ATTEND Anesthesiology
DX: Z09 Encounter for follow-up examination after completed treatment for conditions other than malignant neoplasm (principal); G89.29 Other chronic pain; M79.1 Myalgia; G43.709 Chronic migraine without aura, not intractable, without status migrainosus; M19.011 Primary osteoarthritis, right shoulder; G90.512 Complex regional pain syndrome I of left upper limb; F17.200 Nicotine dependence, unspecified, uncomplicated; Z88.0 Allergy status to penicillin; Z88.8 Allergy status to other drugs, medicaments and biological substances; Z79.891 Long term (current) use of opiate analgesic; Z79.899 Other long term (current) drug therapy

== ENCOUNTER → 2016-07-22 | Outpatient (CLI) | payer OTHER, MEDICARE, MEDICAID ==
[~2016-07-22] MED LIST changes: +GABA-282 PO; -GABA300C3 PO
--- NOTE | 2016-07-30 00:32 | ECWPNPC ---
PATIENT NAME: HAZEL BURTON : 1970 GENDER: FEMALE VISIT DATE: 07/22/2016 DISCHARGE DATE: 07/22/16 1215 VISIT LOCKED DATE TIME: PHYSICIAN: BRANDON CAMPBELL RESOURCE: BRANDON CAMPBELL REASON FOR APPOINTMENT 1. NON COMP- RIGHT SIDE HISTORY OF PRESENT ILLNESS HISTORY OF PRESENT ILLNESS: PAIN THE PATIENT DESCRIBES THE PAIN... FALL RISK SCREENING: SCREENING :NO FALLS IN THE PAST YEAR GENERAL: HERE FOR F/U AND MANAGEMENT OF PERSISTENT RIGHT SHOULDER PAIN.CT RIGHT SHOULDER DONE 05-28-16 REVIEWED.SHOWING MODERATE OSTEOARTHRITIS.CONTINUES WITH SEVERE RIGHT SHOULDER PAIN.RATING PAIN VAS 8/10.CURRENTLY USING SOMA 350MG 2-3X DAY AND PERCOCET 10/325 3-4 X DAY AND REPORTS LITTLE IMPROVEMENT.DENIES SIDE EFFECTS.DISCUSSED MY CONCERNS WITH DAILY USE OF HIGH DOSE OPIODS.THIS IS REVIEWED WITH HER AND HER .TODAY WE HAVE DECIDED TO START WEANING OFF PERCOCET.DESPITE HIGH DOSE OPIODS PAIN IS STILL RATED HIGH WITHOUT IMPROVEMENT IN FUNCTION. CURRENT MEDICATIONS TAKING TYLENOL PM EXTRA STRENGTH 500-25 MG TABLET 1 TABLET AT BEDTIME NEEDED ORALLY ONCE A DAY TAKING DICLOFENAC SODIUM CR COMPOUND CREAM TOPICALLY 3-4 X/DAY, NOTES: COMPOUND CREAM TAKING CYMBALTA 30 MG CAPSULE DELAYED RELEASE PARTICLES 1 CAPSULE ORALLY BID FOR PAIN TAKING GABAPENTIN 300 MG TABLET 1 TAB ORALLY QHS FOR PAIN TAKING NUCYNTA 75 MG TABLET 1 TABLET ORALLY THREE TIMES DAILY NEEDED FOR PAIN MDD3 TAKING SOMA 350 MG TABLET 1 TABLET NEEDED ORALLY Q8H PRN MDD3 TAKING PERCOCET 7.5-325 MG TABLET 1 ORALLY EVERY 8H PRN MDD3 PAST MEDICAL HISTORY CRPS LEFT WRIST AND FOREARM UTERINE FIBROIDS AORTIC ANEURISM 4 CM ALLERGIES PENICILLIN (FOR ALLERGIES USE ONLY): RASH ULTRACET: ITCHING RHINOCORT NASAL: SWELLING SOCIAL HISTORY GENERAL: PAIN CLINIC PFS, CLERGY, PUBLIC HEALTH REFERRALS CLERGY REFERRAL NEEDED?NO WAS THE PROVIDER NOTIFIED OF ANY PERTINENT INFO?NO PFS REFERRAL NEEDED?NO PUBLIC HEALTH REFERRAL NEEDED?NO PATIENT: ____. REVIEW OF SYSTEMS CONSTITUTIONAL: ANY CHANGE IN YOUR MEDICAL CONDITION? YES, HAS AORTIC ANEURISM 4CM X 4CM . CHILLS NO . FEVER NO . INFECTION: DO YOU HAVE NEW INFECTIONS? NO . DO YOU HAVE HISTORY OF MRSA? NO . MUSCULOSKELETAL: ANY NEW PATTERNS OF PAIN OR NUMBNESS? NO . GASTROENTEROLOGY: ANY NEW CHANGE IN BOWEL CONTROL? NO . GENITOURINARY: ANY NEW CHANGE IN BLADDER CONTROL? NO . IS THERE A CHANCE YOU COULD BE ? NO . HEMATOLOGY/LYMPH: DO YOU TAKE ANY BLOOD THINNERS? (FOR EXAMPLE- COUMADIN, PLAVIX, AGGRENOX, PLATEL, PRADAXA, OR XARELTO) NO . WHEN WAS YOUR LAST DOSE? DATE: TIME: . NEUROLOGY: HAVE YOU FALLEN IN THE PAST 6 MONTHS? NO . ANY NEW EXTREMITY NUMBNESS OR WEAKNESS? NO . CARDIOLOGY: DO YOU HAVE A PACEMAKER OR DEFIBRILLATOR? NO . RESPIRATORY: HAVE YOU BEEN SICK IN THE PAST WEEK? NO . FEVER NO . FLU LIKE SYMPTOMS? NO . COUGH NO . INTEGUMENTARY: DO YOU HAVE ANY RASHES OR OPEN SORES? NO . ALLERGIC/IMMUNO: ARE YOU ALLERGIC TO SHELLFISH OR IV DYE? NO . ANY NEW ALLERGIES? NO . PSYCHIATRIC: DO YOU HAVE THOUGHTS OF HURTING YOURSELF OR SOMEONE ELSE? NO . ARE YOU ABUSED, NEGLECTED, OR IN AN UNSAFE ENVIRONMENT? NO . ENDOCRINOLOGY: ARE YOU DIABETIC? NO . OTHER: DO YOU NEED ANY PRESCRIPTIONS? YES . IF YES, PLEASE LIST: PERCOCET, SOMA, GABAPENTIN . ANY NEW PROBLEMS WITH YOUR MEDICATIONS? NO . WHEN DID YOU LAST EAT? ____ . WHEN DID YOU LAST DRINK? ____ . WHAT DID YOU LAST DRINK? ____ . NAME OF PERSON DRIVING YOU HOME? ____ . DO YOU HAVE ANY OTHER QUESTIONS OR CONCERNS NO . REVIEWED BY: PROVIDER: BRANDON FREIRE . VITAL SIGNS WT 160 LBS, HT 66 IN, BMI 25.82 INDEX, BP 141/72 MM HG, HR 79 /MIN, RR 16 /MIN, TEMP 98.6 F, OXYGEN SAT % 96%, NA INITIALS [id number], REVIEWED BY: NL. EXAMINATION GENERAL EXAMINATION: LUNGS:LUNG SOUNDS ARE CLEAR. HEART:HEART RATE REGULAR. MUSCULOSKELETAL:*PAIN WITH LIGHT PALPATION RIGHT SHOULDE.POSITIVE FOR TRIGGER POINT RIGHT TRAPEZIUS AND RIGHT STERNOCLEIDOMASTOID.PAIN IN THIS AREA IS INCREASED WITH ROJM RIGHT ARM AND NECK.. ASSESSMENTS PAIN IN RIGHT SHOULDER - M25.511 (PRIMARY) MYOFASCIAL PAIN - M79.1 CHRONIC PRESCRIPTION OPIATE USE - Z79.891 TREATMENT PAIN IN RIGHT SHOULDER DECREASE PERCOCET TABLET, 5-325 MG, 1, ORALLY, EVERY 8H PRN MDD3, 30 DAY(S), 90, REFILLS 0 TRIGGER POINT 1-2 BRANDON JOHN 07/22/2016 11:51:27 AM > RIGHT SHOULDER/UPPER BACK NOTES: ISTOP REGISTRY REVIEWED AND DEMNOSTRATES COMPLLIANCE. BRINGS IN MEDICATIONS WHICH IS APPROPRIATE FOR WHAT WAS DISPENSED. RECENT URINE TOXICOLOGY REVIEWED. NO UNAUTHORIZED MEDICATIONS. NO ILLICIT SUBSTANCES AND PRESCRIBED MEDICATIONS WERE PRESENT. , RISKS AND BENEFITS OF NARCOTIC/OPIOD MEDICATIONS WERE REVIEWED WITH PATIENT - THIS INCLUDES BUT IS NOT LIMITED TO RISK OF DEPENDANCE/DEVELOPMENT OF ADDICTION, MOOD DISTURBANCE AND DEPRESSION, OSTEOPOROSIS, HORMONAL AND LABIDAL CHANGES, RESPIRATORY DEPRESSION AND . PATIENT IS ADVISED NOT TO DRIVE WHILE ON THESE MEDICATIONS,TRIGGER POINT INJECTION MATERIAL WAS PRINTED. PREVENTIVE MEDICINE GAVE INFO ON TRIGGER POINT INJECTIONS AND PRE PROCEDURE INSTRUCTIONS. PROCEDURE CODES FA211 ESTABILISHED PATIENT [facility] CHARGE DISPOSITION & COMMUNICATION FOLLOW UP 2WK POST (REASON: TPI RIGHT SHOULDER) ELECTRONICALLY SIGNED BY MOUNA CHEN ON 07/29/2016 AT 07:31 PM EDT DISCLAIMER : THIS IS A VISIT SUMMARY EXTRACTED FROM THE [employer] CHART. IT IS NOT A COPY OF THE [employer] PROGRESS NOTE. EVAN
== END ==
LOC: M PAIN 11:00
PROVIDERS: ATTEND Nurse Practitioner Family
DX: M25.511 Pain in right shoulder (principal); M79.1 Myalgia; I71.4 Abdominal aortic aneurysm, without rupture; D25.9 Leiomyoma of uterus, unspecified; G56.02 Carpal tunnel syndrome, left upper limb; Z79.891 Long term (current) use of opiate analgesic; Z88.0 Allergy status to penicillin; Z88.8 Allergy status to other drugs, medicaments and biological substances; Z79.899 Other long term (current) drug therapy

== ENCOUNTER → 2016-07-22 | Outpatient (CLI) | payer OTHER, MEDICARE ==
--- NOTE | 2016-08-02 23:30 | ECWPNPC ---
PATIENT NAME: HAZEL BURTON : 1970 GENDER: FEMALE VISIT DATE: 07/22/2016 DISCHARGE DATE: 07/22/16 1404 VISIT LOCKED DATE TIME: PHYSICIAN: IVY SILVERMAN RESOURCE: IVY SILVERMAN REASON FOR APPOINTMENT 1. W/C L WRIST/FOREARM/MIGRAINES PAIN HISTORY OF PRESENT ILLNESS HISTORY OF PRESENT ILLNESS: PAIN THE PATIENT DESCRIBES THE PAIN... 45 YEAR OLD FEMALE PATIENT WITH HISTORY OF CHRONIC LEFT WRIST, FOREARM, NECK, AND MIGRAINES PAIN. PATIENT DESCRIBES THE PAIN ACHING, AND THROBBING WITH A PAIN SCORE OF 8/10 ON TODAY'S VISIT. PATIENT WAS INJURED IN A WORK RELATED INJURY ON 06/19/2003 WORKING FOR [employer], WHEN SHE TRIPPED AND FELLING INJURING HER LEFT WRIST, AND FOREARM. PATIENT REPORTS THAT SHE STARTED TO HAVE NECK PAIN AFTER THE DCS WAS PUT IN. PATIENT STATES THAT HER NECK ON THE LEFT SIDE HURTS THE MOST WITH PAIN RADIATING TO THE TOP OF HER HEAD. PATIENT STATES THAT SHE WAS GETTING ABOUT 30 HEADACHES A MONTH AND SINCE SHE HAS BEEN GETTING BOTOX INJECTIONS HER HEADACHES HAS GONE DOWN TO 13 A MONTH. PATIENT REPORTS THAT SHE CAN NOT TAKE IBUPROFEN AND ASPIRIN. PATIENT DENIES UNEXPLAINABLE WEIGHT LOSS, FEVER, CHILLS, NEW CHANGES ON HER URINARY OR BOWEL CONTROL. FALL RISK SCREENING: SCREENING :NO FALLS IN THE PAST YEAR CURRENT MEDICATIONS TAKING PERCOCET 5-325 MG TABLET 1 ORALLY EVERY 8H PRN MDD3 TAKING TYLENOL PM EXTRA STRENGTH 500-25 MG TABLET 1 TABLET AT BEDTIME NEEDED ORALLY ONCE A DAY TAKING DICLOFENAC SODIUM CR COMPOUND CREAM TOPICALLY 3-4 X/DAY NEEDED, NOTES: COMPOUND CREAM TAKING CYMBALTA 30 MG CAPSULE DELAYED RELEASE PARTICLES 1 CAPSULE ORALLY BID FOR PAIN TAKING GABAPENTIN 300 MG TABLET 1 TAB ORALLY QHS FOR PAIN TAKING NUCYNTA 75 MG TABLET 1 TABLET ORALLY THREE TIMES DAILY NEEDED FOR PAIN MDD3 TAKING SOMA 350 MG TABLET 1 TABLET NEEDED ORALLY Q8H PRN MDD3 TAKING BUPROPION HCL ER (SR) 150 MG TABLET EXTENDED RELEASE 12 HOUR 1 TABLET ORALLY TWICE A DAY TAKING VITAMIN D 2000 UNIT TABLET 1 TABLET ORALLY ONCE A DAY TAKING FERROUS SULFATE 325 (65 FE) MG TABLET 1 TABLET ORALLY ONCE A DAY TAKING VITAMIN B-12 1000 MCG TABLET 1 TABLET ORALLY ONCE A DAY MEDICATION LIST REVIEWED AND RECONCILED WITH THE PATIENT PAST MEDICAL HISTORY CRPS LEFT WRIST AND FOREARM UTERINE FIBROIDS AORTIC ANEURISM 4 CM ALLERGIES PENICILLIN (FOR ALLERGIES USE ONLY): RASH ULTRACET: ITCHING RHINOCORT NASAL: SWELLING SURGICAL HISTORY DCS 2006 GASTRIC BYPASS, TUBAL,,LSO,FIBROIDS DCS RE- PLACEMENT 10/28/15 FAMILY HISTORY NO FAMILY HISTORY DOCUMENTED. SOCIAL HISTORY GENERAL: PAIN CLINIC PFS, CLERGY, PUBLIC HEALTH REFERRALS CLERGY REFERRAL NEEDED?NO WAS THE PROVIDER NOTIFIED OF ANY PERTINENT INFO?NO PFS REFERRAL NEEDED?NO PUBLIC HEALTH REFERRAL NEEDED?NO PATIENT: ____. HOSPITALIZATION/MAJOR DIAGNOSTIC PROCEDURE SURG RELATED REVIEW OF SYSTEMS CONSTITUTIONAL: ANY CHANGE IN YOUR MEDICAL CONDITION? YES NOTED AAA 4 CM-MONITORING . CHILLS NO . FEVER NO . INFECTION: DO YOU HAVE NEW INFECTIONS? NO . DO YOU HAVE HISTORY OF MRSA? NO . MUSCULOSKELETAL: ANY NEW PATTERNS OF PAIN OR NUMBNESS? NO . GASTROENTEROLOGY: ANY NEW CHANGE IN BOWEL CONTROL? NO . GENITOURINARY: ANY NEW CHANGE IN BLADDER CONTROL? NO . IS THERE A CHANCE YOU COULD BE ? NO . HEMATOLOGY/LYMPH: DO YOU TAKE ANY BLOOD THINNERS? (FOR EXAMPLE- COUMADIN, PLAVIX, AGGRENOX, PLATEL, PRADAXA, OR XARELTO) NO . WHEN WAS YOUR LAST DOSE? DATE: TIME: . NEUROLOGY: HAVE YOU FALLEN IN THE PAST 6 MONTHS? NO . ANY NEW EXTREMITY NUMBNESS OR WEAKNESS? NO . CARDIOLOGY: DO YOU HAVE A PACEMAKER OR DEFIBRILLATOR? NO . RESPIRATORY: HAVE YOU BEEN SICK IN THE PAST WEEK? NO . FEVER NO . FLU LIKE SYMPTOMS? NO . COUGH NO . INTEGUMENTARY: DO YOU HAVE ANY RASHES OR OPEN SORES? NO . ALLERGIC/IMMUNO: ARE YOU ALLERGIC TO SHELLFISH OR IV DYE? NO . ANY NEW ALLERGIES? NO . PSYCHIATRIC: DO YOU HAVE THOUGHTS OF HURTING YOURSELF OR SOMEONE ELSE? NO . ARE YOU ABUSED, NEGLECTED, OR IN AN UNSAFE ENVIRONMENT? NO . ENDOCRINOLOGY: ARE YOU DIABETIC? NO . OTHER: DO YOU NEED ANY PRESCRIPTIONS? NO . IF YES, PLEASE LIST: ____ . ANY NEW PROBLEMS WITH YOUR MEDICATIONS? NO . WHEN DID YOU LAST EAT? ____ . WHEN DID YOU LAST DRINK? ____ . WHAT DID YOU LAST DRINK? ____ . NAME OF PERSON DRIVING YOU HOME? ____ . DO YOU HAVE ANY OTHER QUESTIONS OR CONCERNS NO . REVIEWED BY: PROVIDER: IVY SILVERMAN MD . VITAL SIGNS WT 160 LBS, HT 66 IN, BMI 25.82 INDEX, BP 141/72 MM HG, HR 79 /MIN, RR 16 /MIN, TEMP 98.6 F, OXYGEN SAT % 96%, REVIEWED BY: MLF. EXAMINATION : PATIENT IS ALERT O X 3 AND COOPERATIVE. THERE IS TENDERNESS IN THE LEFT WRIST WHEN THE PATIENT BENDS HER WRIST. PATIENT IS ABLE TO ABDUCT HER ARMS ONLY TO SHOULDER LEVEL. PATIENT'S HAND VALIDATION ARCHITECT IS REDUCED ON BOTH HANDS. THERE IS TENDERNESS IN THE CERVICAL PARASPINAL MUSCLE GROUP WITH BANDS OF TISSUES, RESTRICTION OF MOVEMENT, AND PRESENCE OF TRIGGER POINTS. PATIENT IS ABLE TO EXTEND HER NECK AT 30 DEGREES AND FLEX AT 50 DEGREES. ASSESSMENTS MYALGIA - M79.1 (PRIMARY) CHRONIC MIGRAINE WITHOUT AURA, NOT INTRACTABLE, WITHOUT STATUS MIGRAINOSUS - G43.709 LEFT UPPER EXTREMITY NEUROPATHY. TREATMENT MYALGIA REFILL NUCYNTA TABLET, 75 MG, 1 TABLET, ( CODE D FOR CHRONIC PAIN ), THREE TIMES DAILY NEEDED FOR PAIN MDD3, 60 DAYS, 180, REFILLS 0 REFILL CYMBALTA CAPSULE DELAYED RELEASE PARTICLES, 30 MG, 1 CAPSULE, ORALLY, BID FOR PAIN, 30 DAY(S), 60, REFILLS 2 NOTES: WE DISCUSSED SEVERAL ISSUES WITH MRS. STANTON'S PAIN MANAGEMENT CASE. PATIENT WILL CONTINUE WITH THE SAME MEDICATION REGIME BEFORE. PATIENT IS USING THE NUCYNTA FOR SOMATIC PAIN, SOMA FOR THE SPASTICITY AND MUSCLE SPASMS, AND PERCOCET FOR THE SOMATIC PAIN. PATIENT STATES THAT THE MEDICATION KEEPS HER MOBILE AND FUNCTIONAL. PATIENT DENIES ABUSE TO ANY MEDICATION, DENIES USE OF ILLEGAL SUBSTANCES, AND STATES THAT SHE IS ONLY USING THE MEDICATION FOR PAIN MANAGEMENT. URINE TOXICOLOGY REPORT DONE ON 03/10/17 SHOWS CONSISTENT RESULTS WITH THE PATIENT'S MEDICATION LIST. AT THIS TIME WE ARE WAITING FOR BOTOX APPROVAL. WE DISCUSSED MOVING FORWARD WITH TRIGGER POINT INJECTIONS TO HELP WITH THE SPASTICITY. WE DISCUSSED THE RISKS, BENEFITS, AND ALTNERATIVES OF THE INJECTION AND THE PATIENT WOULD LIKE TO PROCEED AT THIS TIME. INSTRUCTIONS WERE GIVEN, QUESTIONS WERE ANSWERED, PATIENT REPORTS UNDERSTANDING AND AGREES WITH THE PLAN. I, ALEC MOSELEY, DOCUMENTED THE ABOVE INFORMATION ACTING A SCRIBE FOR DR. SILVERMAN. I HAVE REVIEWED THE ABOVE DOCUMENT, WRITTEN BY ALEC ZAMBRANO AND I VERIFY THAT IT IS ACCURATE. PROCEDURES PN WORKMANS' COMP OPINION IN YOUR OPINION, WAS THE INCIDENT THAT THE PATIENT DESCRIBED THE COMPETENT MEDICAL CAUSE OF THIS INJURY/ILLNESS? YES ARE THE PATIENT'S COMPLAINTS CONSISTENT WITH HIS/HER HISTORY OF THE INJURY/ILLNESS? YES IS THE PATIENT'S HISTORY OF THE INJURY/ILLNESS CONSISTENT WITH YOUR OBJECTIVE FINDING? YES WHAT IS THE PERCENTAGE OF TEMPORARY IMPAIRMENT? MODERATE TO MARKED = 66.7% IS THE PATIENT WORKING? NO DOCTOR ON SITE: IVY PRICE MD PROCEDURE CODES FA211 ESTABILISHED PATIENT [facility] FACILITY CHARGE G8427 DOC MEDS VERIFIED W/PT OR RE G8730 PAIN ASSESS POS TOOL F/U PLAN DOC DISPOSITION & COMMUNICATION FOLLOW UP TPI AFTER APPROVAL ELECTRONICALLY SIGNED BY IVY SILVERMAN MD ON 08/02/2016 AT 04:44 PM EDT DISCLAIMER : THIS IS A VISIT SUMMARY EXTRACTED FROM THE [employer] CHART. IT IS NOT A COPY OF THE [employer] PROGRESS NOTE. EVAN
== END ==
LOC: M PAIN 13:20
PROVIDERS: ATTEND Anesthesiology
DX: M25.511 Pain in right shoulder (principal); M79.1 Myalgia; G43.709 Chronic migraine without aura, not intractable, without status migrainosus; G56.02 Carpal tunnel syndrome, left upper limb; M19.011 Primary osteoarthritis, right shoulder; I71.4 Abdominal aortic aneurysm, without rupture; D25.9 Leiomyoma of uterus, unspecified; Z79.891 Long term (current) use of opiate analgesic; Z79.899 Other long term (current) drug therapy; Z88.0 Allergy status to penicillin; Z88.8 Allergy status to other drugs, medicaments and biological substances

== ENCOUNTER → 2016-08-10 | Outpatient (CLI) | payer MEDICARE, MEDICAID ==
[~2016-08-10] MED LIST changes: +BUPIVACAINE HCL 0.25% 10 ML VIAL As Ordered ONE; +BUPIVACAINE HCL 0.25% 30 ML VIAL As Ordered ONE; +TRIAMCINOLONE ACETONIDE SUSP 40 MG/ML VIAL (J3301) As Ordered ONE; +diazePAM 5 MG TAB As Ordered ONE; +oxyCODONE 5MG TAB As Ordered ONE
== END ==
LOC: M PAIN 12:40
PROVIDERS: ATTEND Anesthesiology
DX: G89.29 Other chronic pain (principal); M25.511 Pain in right shoulder; M79.1 Myalgia; F17.210 Nicotine dependence, cigarettes, uncomplicated; D25.9 Leiomyoma of uterus, unspecified; G56.02 Carpal tunnel syndrome, left upper limb; I71.4 Abdominal aortic aneurysm, without rupture; Z79.891 Long term (current) use of opiate analgesic; Z79.899 Other long term (current) drug therapy; Z98.84 Bariatric surgery status; Z88.0 Allergy status to penicillin; Z88.8 Allergy status to other drugs, medicaments and biological substances
CPT/HCPCS: 20552; J3301

== ENCOUNTER → 2016-08-19 | Outpatient (CLI) | payer MEDICARE, MEDICAID ==
[~2016-08-19] MED LIST changes: -BUPIVACAINE HCL 0.25% 10 ML VIAL As Ordered ONE; -BUPIVACAINE HCL 0.25% 30 ML VIAL As Ordered ONE; -TRIAMCINOLONE ACETONIDE SUSP 40 MG/ML VIAL (J3301) As Ordered ONE; -diazePAM 5 MG TAB As Ordered ONE; -oxyCODONE 5MG TAB As Ordered ONE
== END | disposition home or self-care (01) ==
LOC: M PAIN 14:20
PROVIDERS: ATTEND Anesthesiology
DX: G89.29 Other chronic pain (principal); M79.1 Myalgia; D25.9 Leiomyoma of uterus, unspecified; I71.9 Aortic aneurysm of unspecified site, without rupture; G90.512 Complex regional pain syndrome I of left upper limb; Z98.84 Bariatric surgery status; Z79.899 Other long term (current) drug therapy; Z88.0 Allergy status to penicillin; Z88.8 Allergy status to other drugs, medicaments and biological substances; F17.210 Nicotine dependence, cigarettes, uncomplicated

== ENCOUNTER → 2016-08-24 | Outpatient (CLI) | payer OTHER, MEDICAID, MEDICARE ==
[~2016-08-24] MED LIST changes: +BOTULINUM INJ 100 UNITS (J0585) IM ONE; +diazePAM 5 MG TAB As Ordered ONE; +oxyCODONE 5MG TAB As Ordered ONE
--- NOTE | 2016-08-30 23:35 | ECWPNPC ---
PATIENT NAME: HAZEL BURTON : 1970 GENDER: FEMALE VISIT DATE: 08/24/2016 DISCHARGE DATE: 08/24/16 1545 VISIT LOCKED DATE TIME: PHYSICIAN: IVY SILVERMAN RESOURCE: IVY SILVERMAN REASON FOR APPOINTMENT 1. BOTOX HISTORY OF PRESENT ILLNESS HISTORY OF PRESENT ILLNESS: PAIN THE PATIENT DESCRIBES THE PAIN... FALL RISK SCREENING: SCREENING :NO FALLS IN THE PAST YEAR CURRENT MEDICATIONS TAKING NUCYNTA 75 MG TABLET 1 TABLET ORALLY EVERY 6 HRS NEEDE FOR PAIN MDD4, NOTES: 08/20/16 TAKING PERCOCET 5-325 MG TABLET 1 ORALLY EVERY 8H PRN MDD3, NOTES: 08/24/16599 TAKING TYLENOL PM EXTRA STRENGTH 500-25 MG TABLET 1 TABLET AT BEDTIME NEEDED ORALLY ONCE A DAY, NOTES: 08/23/162129 TAKING DICLOFENAC SODIUM CR COMPOUND CREAM TOPICALLY 3-4 X/DAY NEEDED, NOTES: 08/22/16 TAKING BUPROPION HCL ER (SR) 150 MG TABLET EXTENDED RELEASE 12 HOUR 1 TABLET ORALLY TWICE A DAY, NOTES: 08/24/16599 TAKING VITAMIN D 2000 UNIT TABLET 1 TABLET ORALLY ONCE A DAY, NOTES: 08/24/16599 TAKING FERROUS SULFATE 325 (65 FE) MG TABLET 1 TABLET ORALLY ONCE A DAY, NOTES: 08/24/16599 TAKING VITAMIN B-12 1000 MCG TABLET 1 TABLET ORALLY ONCE A DAY, NOTES: 08/24/16599 TAKING CYMBALTA 30 MG CAPSULE DELAYED RELEASE PARTICLES 1 CAPSULE ORALLY BID FOR PAIN, NOTES: 08/24/16599 TAKING SOMA 350 MG TABLET 1 TABLET NEEDED ORALLY Q8H PRN MDD3, NOTES: 08/24/16599 TAKING GABAPENTIN 300 MG TABLET 1 TAB ORALLY QHS FOR PAIN, NOTES: 08/23/162129 MEDICATION LIST REVIEWED AND RECONCILED WITH THE PATIENT PAST MEDICAL HISTORY CRPS LEFT WRIST AND FOREARM UTERINE FIBROIDS AORTIC ANEURISM 4 CM ALLERGIES PENICILLIN (FOR ALLERGIES USE ONLY): RASH ULTRACET: ITCHING RHINOCORT NASAL: SWELLING SURGICAL HISTORY DCS 2006 GASTRIC BYPASS, TUBAL,,LSO,FIBROIDS DCS RE- PLACEMENT 10/28/15 HOSPITALIZATION/MAJOR DIAGNOSTIC PROCEDURE SURG RELATED REVIEW OF SYSTEMS CONSTITUTIONAL: ANY CHANGE IN YOUR MEDICAL CONDITION? NO . CHILLS NO . FEVER NO . INFECTION: DO YOU HAVE NEW INFECTIONS? NO . DO YOU HAVE HISTORY OF MRSA? NO . MUSCULOSKELETAL: ANY NEW PATTERNS OF PAIN OR NUMBNESS? NO . GASTROENTEROLOGY: ANY NEW CHANGE IN BOWEL CONTROL? NO . GENITOURINARY: ANY NEW CHANGE IN BLADDER CONTROL? NO . IS THERE A CHANCE YOU COULD BE ? NO . HEMATOLOGY/LYMPH: DO YOU TAKE ANY BLOOD THINNERS? (FOR EXAMPLE- COUMADIN, PLAVIX, AGGRENOX, PLATEL, PRADAXA, OR XARELTO) NO . WHEN WAS YOUR LAST DOSE? DATE: TIME: . NEUROLOGY: HAVE YOU FALLEN IN THE PAST 6 MONTHS? YES, LOSS OF BALANCE, PT REPORTS NO MAJOR INJURIES, WAS SEEN BY PCP NEXT DAY . ANY NEW EXTREMITY NUMBNESS OR WEAKNESS? NO . CARDIOLOGY: DO YOU HAVE A PACEMAKER OR DEFIBRILLATOR? NO . RESPIRATORY: HAVE YOU BEEN SICK IN THE PAST WEEK? NO . FEVER NO . FLU LIKE SYMPTOMS? NO . COUGH NO . INTEGUMENTARY: DO YOU HAVE ANY RASHES OR OPEN SORES? NO . ALLERGIC/IMMUNO: ARE YOU ALLERGIC TO SHELLFISH OR IV DYE? NO . ANY NEW ALLERGIES? NO . PSYCHIATRIC: DO YOU HAVE THOUGHTS OF HURTING YOURSELF OR SOMEONE ELSE? NO . ARE YOU ABUSED, NEGLECTED, OR IN AN UNSAFE ENVIRONMENT? NO . ENDOCRINOLOGY: ARE YOU DIABETIC? NO . OTHER: DO YOU NEED ANY PRESCRIPTIONS? NO . IF YES, PLEASE LIST: ____ . ANY NEW PROBLEMS WITH YOUR MEDICATIONS? NO . WHEN DID YOU LAST EAT? ____08/23/16 @ 2000 . WHEN DID YOU LAST DRINK? ____08/24/16 0600 . WHAT DID YOU LAST DRINK? ____WATER . NAME OF PERSON DRIVING YOU HOME? ____VANI MARTIN . DO YOU HAVE ANY OTHER QUESTIONS OR CONCERNS NO . REVIEWED BY: PROVIDER: . VITAL SIGNS WT 136 LBS, HT 66 IN, BMI 21.95 INDEX, BP 129/68 MM HG, HR 71 /MIN, RR 16 /MIN, TEMP 97.3 F, OXYGEN SAT % 97%, SAFE IN ENV? (Y/N) Y, NA INITIALS VA 12:55, REVIEWED BY: EM. ASSESSMENTS CHRONIC MIGRAINE WITHOUT AURA, NOT INTRACTABLE, WITHOUT STATUS MIGRAINOSUS - G43.709 (PRIMARY) PROCEDURES PN BOTOX INJECTIONS SUBSEQUENT INJECTIONS PRE PROCEDURE DIAGNOSIS CHRONIC MIGRAINE HEADACHES POST PROCEDURE DIAGNOSIS CHRONIC MIGRAINE HEADACHES PROCEDURE BOTOX INJECTION AT THE HEAD, NECK AND SHOULDERS SURGEON DR. IVY SILVERMAN PHARMACY MESSENGER NONE ANESTHESIA NONE PRE PROCEDURE NOTE THE PATIENT HAS HISTORY OF CHRONIC MIGRAINE HEADACHES. I EVALUATE THE PATIENT AND REVIEWED THE CHART. I WENT OVER THE RISKS, ALTERNATIVES, AND BENEFITS ASSOCIATED WITH THIS PROCEDURE. THE PATIENT WOULD LIKE TO PROCEED AND GIVE CONSENT TO PERFORMED THE PROCEDURE. THE PATIENT DENIES UNEXPLAINABLE WEIGHT LOSS, FEVER, CHILLS, OR NEW CHANGES IN URINARY OR BOWEL CONTROL. THE PATIENT DID A BOTOX INJECTION AT THE HEAD, NECK AND SHOULDERS 3 MONTHS AGO AND EXPRESSED MORE THAN 50% REDUCTION ON THE FREQUENCY AND INTENSITY OF THE HEADACHES. THE PATIENT EXPRESS THAT THE USE OF BOTOX HAS REDUCE SIGNIFICANTLY THE SEVERITY OF THE HEADACHES AND EXPRESSED THAT WANT TO RECEIVE THIS PROCEDURE AGAIN TODAY DESCRIPTION OF PROCEDURE THE PATIENTS WAS BROUGHT TO THE PROCEDURE ROOM AND PLACED IN THE SUPINE POSITION. I CHECKED LATERALITY AND THE AREAS WHERE THE PROCEDURE WAS GOING TO BE PERFORMED WITH THE PATIENT AND THE SUPPORTING STAFF AT THE MOMENT OF THE TIME OUT IN THE PROCEDURE ROOM. FOR THE PROCEDURE I USED A SOLUTION OF 5 UNITS OF BOTOX PER EACH 0.1 ML OF THE SOLUTION. I USED A 30-GAUGE NEEDLE TO INJECT THE SOLUTION AT THE SELECTED LOCATIONS. I INJECTED FIRST THE RIGHT AND LEFT COMMUNICATIONS MANAGER MUSCLES. THE LANDMARK FOR BOTH INJECTIONS WAS APPROXIMATELY 1 CM ABOVE THE SUPERIOR MEDIAL EDGE OF THE EYEBROW. AFTER THESE TWO INJECTIONS, I INJECTED THE PROCERUS MUSCLE AT THE MIDLINE POINT BETWEEN THESE FIRST TWO INJECTIONS. THEN I PROCEEDED TO INJECT THE RIGHT AND LEFT FRONTALIS MUSCLE. TWO INJECTIONS WERE DONE IN EACH SIDE. THE FIRST INJECTION WAS DONE APPROXIMATELY 2 CM ABOVE THE FIRST INJECTION OF THE COMMUNICATIONS MANAGER. THE SECOND INJECTION WAS DONE APPROXIMATELY 1.5 CM LATERAL TO THIS FIST INJECTION OF THE FRONTALIS OF EACH SIDE. AFTER THE INJECTIONS OVER THE FOREHEAD WERE DONE, THE PATIENT'S HEAD WAS TURNED TO THE LEFT SIDE AND WE STARTED TO WORK WITH THE RIGHT TEMPORALIS MUSCLE. FIRST INJECTION WAS DONE IN A VERTICAL LINE OF THE TRAGUS APPROXIMATELY 3 CM ABOVE THE TRAGUS. THE SECOND INJECTION WAS DONE APPROXIMATELY 2 CM ABOVE THE FIRST INJECTION. THE THIRD INJECTION WAS DONE APPROXIMATELY 1 CM FRONT SIDDIQUI FROM THIS VERTICAL LINE CREATED AT THE LEVEL OF THE TRAGUS, SHELTER BETWEEN THESE TWO INJECTIONS. THE FOURTH INJECTION WAS DONE APPROXIMATELY 1.5 CM BACK FROM THE SECOND INJECTION TO THE TEMPORALIS IN LINE TO THE MIDPORTION OF THE EAR. THEN, WE PROCEEDED TO INJECT THE LEFT TEMPORALIS MUSCLE. WE CLEANED THE AREA WITH ALCOHOL AND PROCEEDED TO PERFORM THE SAME FOR INJECTIONS DESCRIBED ABOVE BUT IN THE LEFT TEMPORALIS MUSCLE USING THE SAME LANDMARKS. AFTER THESE INJECTIONS WERE DONE, THE PATIENT WAS SEATED. FIRST, WE STARTED TO INJECT THE LEFT AND RIGHT OCCIPITALIS MUSCLE. I INJECTED AT THE FOLLOWING PLACES IN THE RIGHT AND LEFT MUSCLE. THE FIRST INJECTION WAS DONE AT THE MIDPOINT POSITION BETWEEN THE MASTOID PROCESS AND THE INION OF THE OCCIPITAL PROTUBERANCE. THE SECOND INJECTION WAS DONE APPROXIMATELY 1.5 CM SUPERIOR AND LATERAL OF THIS POINT. THE THIRD INJECTION WAS DONE APPROXIMATELY 1.5 CM SUPERIOR AND MEDIAL TO THIS FIRST INJECTION. THEN, I PROCEEDED TO INJECT THE RIGHT AND LEFT PARASPINAL MUSCLES. LANDMARK OF THE INJECTION WERE APPROXIMATELY: FIRST INJECTION 3 CM BELOW THE INION AND 1 CM LATERAL TO THE MIDLINE AND SECOND INJECTION AT EACH SIDE WAS DONE APPROXIMATELY 1.5 CM SUPERIOR AND LATERAL OF THE FIRST INJECTION. THE LAST GROUP OF INJECTIONS WAS DONE OVER THE RIGHT AND LEFT TRAPEZIUS MUSCLE OVER THE SHOULDERS AREA. THE FIRST INJECTION WAS DONE AT THE MIDPOINT BETWEEN THE INFLECTION POINT BETWEEN THE NECK AND SHOULDER AND THE ACROMION. THE SECOND AND THIRD INJECTIONS WERE DONE APPROXIMATELY 2.5 CM LATERAL AND MEDIAL FROM THIS FIRST INJECTION. SAME TARGETS WERE USED IN THE RIGHT AND LEFT SIDE. I PUT 5 ADDITIONAL UNITS OF BOTOX AT THE RIGHT SHOULDER. IN TOTAL, I INJECTED 160 UNITS OF BOTOX. PROCEDURE WAS DONE WITHOUT EVIDENCE OF PARESTHESIA, PNEUMOTHORAX, OR ANY COMPLICATIONS. THE PATIENT TOLERATED THE PROCEDURE VERY WELL. THE PATIENT WAS SENT TO THE RECOVERY ROOM FOR OBSERVATIONS. INJECTIONS WERE DONE AFTER CLEANING WITH ALCOHOL, USING ASEPTIC TECHNIQUES POST PROCEDURE NOTE THE PROCEDURE DONE WAS DISCUSSED WITH THE PATIENT. THE PATIENT WILL BE SEEN IN A FOLLOW UP IN THE NEXT FEW WEEKS. INSTRUCTIONS WERE GIVEN, QUESTIONS WERE ANSWERED, AND THE PATIENT EXPRESSED UNDERSTANDING AND AGREES WITH THE PLAN. I, ALEC MOSELEY, DOCUMENTED THE ABOVE INFORMATION ACTING A SCRIBE FOR DR. SILVERMAN. I HAVE REVIEWED THE ABOVE DOCUMENT, WRITTEN BY ALEC ZAMBRANO AND I VERIFY THAT IT IS ACCURATE PN WORKMANS' COMP OPINION IN YOUR OPINION, WAS THE INCIDENT THAT THE PATIENT DESCRIBED THE COMPETENT MEDICAL CAUSE OF THIS INJURY/ILLNESS? YES ARE THE PATIENT'S COMPLAINTS CONSISTENT WITH HIS/HER HISTORY OF THE INJURY/ILLNESS? YES IS THE PATIENT'S HISTORY OF THE INJURY/ILLNESS CONSISTENT WITH YOUR OBJECTIVE FINDING? YES WHAT IS THE PERCENTAGE OF TEMPORARY IMPAIRMENT? MODERATE TO MARKED = 66.7% IS THE PATIENT WORKING? NO DOCTOR ON SITE: IVY PRICE MD PROCEDURE CODES 49945 CHEMODENERV MUSC MIGRAINE DISPOSITION & COMMUNICATION FOLLOW UP 3 WEEKS ELECTRONICALLY SIGNED BY IVY SILVERMAN MD ON 08/30/2016 AT 05:50 AM EDT DISCLAIMER : THIS IS A VISIT SUMMARY EXTRACTED FROM THE [employer] CHART. IT IS NOT A COPY OF THE [employer] PROGRESS NOTE. EVAN
== END | disposition home or self-care (01) ==
LOC: M PAIN 12:40
PROVIDERS: ATTEND Anesthesiology
DX: G89.29 Other chronic pain (principal); G43.709 Chronic migraine without aura, not intractable, without status migrainosus; I71.9 Aortic aneurysm of unspecified site, without rupture; D25.9 Leiomyoma of uterus, unspecified; Z98.84 Bariatric surgery status; Z79.899 Other long term (current) drug therapy; Z88.0 Allergy status to penicillin; Z88.5 Allergy status to narcotic agent; Z88.8 Allergy status to other drugs, medicaments and biological substances
CPT/HCPCS: 64615; J0585

== ENCOUNTER → 2016-09-14 | Outpatient (CLI) | payer OTHER, MEDICARE, MEDICAID ==
[~2016-09-14] MED LIST changes: -BOTULINUM INJ 100 UNITS (J0585) IM ONE; +NUCY75TA3 PO; -NUCY75TA8 PO; -diazePAM 5 MG TAB As Ordered ONE; -oxyCODONE 5MG TAB As Ordered ONE
--- NOTE | 2016-09-30 01:15 | ECWPNPC ---
PATIENT NAME: HAZEL BURTON : 1970 GENDER: FEMALE VISIT DATE: 09/14/2016 DISCHARGE DATE: 09/14/16 1426 VISIT LOCKED DATE TIME: PHYSICIAN: IVY SILVERMAN RESOURCE: IVY SILVERMAN REASON FOR APPOINTMENT 1. WRIST PAIN/ MIGRAINES/WC HISTORY OF PRESENT ILLNESS HISTORY OF PRESENT ILLNESS: PAIN THE PATIENT DESCRIBES THE PAIN... 46 YEAR OLD FEMALE PATIENT WITH HISTORY OF CHRONIC WRIST PAIN AND MIGRAINES. PATIENT DESCRIBES THE PAIN SHARP, THROBBING WITH THE PAIN COMING AND GOING AND A CURRENT PAIN SCORE OF 4/10. 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 MRS. BURTON REPORTS HAVING A LOT OF RIGHT SHOULDER PAIN SINCE THE REVISION OF THE DCS FOR THE CERVICAL AREA. PATIENT RECEIVED BOTOX INJECTIONS FOR THE MIGRAINES AND STATES THAT BEFORE THE INJECTIONS SHE WAS GETTING 30 HEADACHES A MONTH AND SINCE THE BOTOX SHE IS ONLY USING ROUGHLY 13 MONTH. CURRENTLY THE PATIENT IS USING NUCYNTA AND CYMBALTA FOR PAIN MANAGEMENT. PATIENT DENIES UNEXPLAINABLE WEIGHT LOSS, FEVER, CHILLS, NEW CHANGES ON HER URINARY OR BOWEL CONTROL. FALL RISK SCREENING: SCREENING :NO FALLS IN THE PAST YEAR CURRENT MEDICATIONS TAKING NUCYNTA 75 MG TABLET 1 TABLET ORALLY EVERY 6 HRS NEEDE FOR PAIN MDD4 TAKING PERCOCET 5-325 MG TABLET 1 ORALLY EVERY 8H PRN MDD3 TAKING TYLENOL PM EXTRA STRENGTH 500-25 MG TABLET 1 TABLET AT BEDTIME NEEDED ORALLY ONCE A DAY TAKING DICLOFENAC SODIUM CR COMPOUND CREAM TOPICALLY 3-4 X/DAY NEEDED TAKING BUPROPION HCL ER (SR) 150 MG TABLET EXTENDED RELEASE 12 HOUR 1 TABLET ORALLY TWICE A DAY TAKING VITAMIN D 2000 UNIT TABLET 1 TABLET ORALLY ONCE A DAY TAKING FERROUS SULFATE 325 (65 FE) MG TABLET 1 TABLET ORALLY ONCE A DAY TAKING VITAMIN B-12 1000 MCG TABLET 1 TABLET ORALLY ONCE A DAY TAKING CYMBALTA 30 MG CAPSULE DELAYED RELEASE PARTICLES 1 CAPSULE ORALLY BID FOR PAIN TAKING SOMA 350 MG TABLET 1 TABLET NEEDED ORALLY Q8H PRN MDD3 TAKING GABAPENTIN 300 MG TABLET 1 TAB ORALLY QHS FOR PAIN MEDICATION LIST REVIEWED AND RECONCILED WITH THE PATIENT PAST MEDICAL HISTORY CRPS LEFT WRIST AND FOREARM UTERINE FIBROIDS AORTIC ANEURISM 4 CM ALLERGIES PENICILLIN (FOR ALLERGIES USE ONLY): RASH ULTRACET: ITCHING RHINOCORT NASAL: SWELLING SURGICAL HISTORY DCS 2006 GASTRIC BYPASS, TUBAL,,LSO,FIBROIDS DCS RE- PLACEMENT 10/28/15 FAMILY HISTORY FATHER: 73 YRS, DIAGNOSED WITH CANCER MOTHER: ALIVE 68 YRS 2 BROTHER(S) , 1 SISTER(S) - HEALTHY. 2 SON(S) , 2 DAUGHTER(S) - HEALTHY. DAD - FROM [place]. SOCIAL HISTORY GENERAL: TOBACCO USE ARE YOU A:CURRENT SMOKER PATIENT COUNSELED ON THE DANGERS OF TOBACCO USE AND URGED TO QUIT:08/19/2016 ARE YOU INTERESTED IN QUITTING?READY TO QUIT COUNSELED THE PATIENT ON TOBACCO USE, CESSATION [id number] VAPORYES CAFFEINE CAFFEINE USE?YES HOW OFTEN AND HOW MUCH? 2-3 CUPS PER DAY LEARNING BARRIERS / SPECIAL NEEDS VISION IMPAIRED?YES :CORRECTIVE LENSES READINESS TO LEARN?YES LEARNING PREFERENCES?NO PAIN CLINIC PFS, CLERGY, PUBLIC HEALTH REFERRALS PFS REFERRAL NEEDED?NO CLERGY REFERRAL NEEDED?NO PUBLIC HEALTH REFERRAL NEEDED?NO WAS THE PROVIDER NOTIFIED OF ANY PERTINENT INFO?YES REVIEWED BY: AISHA. PATIENT: ____. ADVANCE DIRECTIVES HEALTH CARE PROXY?YES NAME OF HCP VANI MARTIN JR CONTACT # FOR HCP [phone] HOSPITALIZATION/MAJOR DIAGNOSTIC PROCEDURE SURG RELATED REVIEW OF SYSTEMS CONSTITUTIONAL: ANY CHANGE IN YOUR MEDICAL CONDITION? NO . CHILLS NO . FEVER NO . INFECTION: DO YOU HAVE NEW INFECTIONS? NO . DO YOU HAVE HISTORY OF MRSA? NO . MUSCULOSKELETAL: ANY NEW PATTERNS OF PAIN OR NUMBNESS? YES, PT STATES BOTOX INJECTIONS DONE AND SHE HAS HAD MIGRAINES SINCE, BUT LESS FREQUENT . GASTROENTEROLOGY: ANY NEW CHANGE IN BOWEL CONTROL? NO . GENITOURINARY: ANY NEW CHANGE IN BLADDER CONTROL? NO . IS THERE A CHANCE YOU COULD BE ? NO . HEMATOLOGY/LYMPH: DO YOU TAKE ANY BLOOD THINNERS? (FOR EXAMPLE- COUMADIN, PLAVIX, AGGRENOX, PLATEL, PRADAXA, OR XARELTO) NO . WHEN WAS YOUR LAST DOSE? DATE: TIME: . NEUROLOGY: HAVE YOU FALLEN IN THE PAST 6 MONTHS? YES . ANY NEW EXTREMITY NUMBNESS OR WEAKNESS? NO . CARDIOLOGY: DO YOU HAVE A PACEMAKER OR DEFIBRILLATOR? NO . RESPIRATORY: HAVE YOU BEEN SICK IN THE PAST WEEK? NO . FEVER NO . FLU LIKE SYMPTOMS? NO . COUGH NO . INTEGUMENTARY: DO YOU HAVE ANY RASHES OR OPEN SORES? NO . ALLERGIC/IMMUNO: ARE YOU ALLERGIC TO SHELLFISH OR IV DYE? NO . ANY NEW ALLERGIES? NO . PSYCHIATRIC: DO YOU HAVE THOUGHTS OF HURTING YOURSELF OR SOMEONE ELSE? NO . ARE YOU ABUSED, NEGLECTED, OR IN AN UNSAFE ENVIRONMENT? NO . ENDOCRINOLOGY: ARE YOU DIABETIC? NO . OTHER: DO YOU NEED ANY PRESCRIPTIONS? NO . IF YES, PLEASE LIST: ____ . ANY NEW PROBLEMS WITH YOUR MEDICATIONS? NO . WHEN DID YOU LAST EAT? ____ . WHEN DID YOU LAST DRINK? ____ . WHAT DID YOU LAST DRINK? ____ . NAME OF PERSON DRIVING YOU HOME? ____ . DO YOU HAVE ANY OTHER QUESTIONS OR CONCERNS NO . REVIEWED BY: PROVIDER: IVY SILVERMAN MD . VITAL SIGNS WT 157.6 LBS, HT 66 IN, BMI 25.43 INDEX, BP 131/83 MM HG, HR 108 /MIN, RR 16 /MIN, TEMP 97.0 F, OXYGEN SAT % 97%, NA INITIALS TL 1618, REVIEWED BY: CS. EXAMINATION : PATIENT IS ALERT O X 3 AND COOPERATIVE. THERE IS TENDERNESS IN THE LEFT WRIST WHEN THE PATIENT BENDS HER WRIST. PATIENT IS ABLE TO ABDUCT HER ARMS ONLY TO SHOULDER LEVEL. DIFFICULTIES MOVING LEFT HAND. PATIENT'S HAND WATCH CRYSTAL EDGE GRINDER IS REDUCED ON BOTH HANDS. THERE IS TENDERNESS IN THE CERVICAL PARASPINAL MUSCLE GROUP WITH BANDS OF TISSUES, RESTRICTION OF MOVEMENT, AND PRESENCE OF TRIGGER POINTS. PATIENT IS ABLE TO EXTEND HER NECK AT 30 DEGREES AND FLEX AT 50 DEGREES. ASSESSMENTS MYALGIA - M79.1 (PRIMARY) CHRONIC MIGRAINE WITHOUT AURA, NOT INTRACTABLE, WITHOUT STATUS MIGRAINOSUS - G43.709 TREATMENT MYALGIA REFILL NUCYNTA TABLET, 75 MG, 1 TABLET, ORALLY, EVERY 6 HRS NEEDE FOR PAIN MDD4, 30 DAY(S), 90, REFILLS 0 REFILL CYMBALTA CAPSULE DELAYED RELEASE PARTICLES, 30 MG, 1 CAPSULE, ORALLY, BID FOR PAIN, 30 DAY(S), 60, REFILLS 2 NOTES: WE DISCUSSED SEVERAL ISSUES WITH MRS. BURTON'S PAIN MANAGEMENT CASE. AT THE TIME THE PATIENT WILL REMAIN ON THE SAME MEDICATION REGIME BEFORE. PATIENT USES THE NUCYNTA FOR THE MIGRAINES AND THE SOMATIC PAIN AND THE CYMBALTA FOR THE NEUROPATHIC PAIN. PATIENT BROKE MEDICATIONS TO TODAY'S VISIT IN THEIR ORIGINAL BOTTLES. PATIENT DENIES ABUSE OF ANY MEDICATION, DENIES USE OF ILLEGAL SUBSTANCES, AND STATES THAT HE IS ONLY USING THE MEDICATION FOR PAIN MANAGEMENT. I WOULD LIKE TO REQUEST A REVISION OF THE DCS DUE TO IT CAUSING THE RIGHT SHOULDER SEVERE PAIN. PATIENT NEVER HAD PAIN IN THE RIGHT SHOULDER UNTIL A BATTERY REPLACEMENT WAS DONE. INSTRUCTIONS WERE GIVEN, QUESTIONS WERE ANSWERED, PATIENT REPORTS UNDERSTANDING AND AGREES WITH THE PLAN. I, ALEC MOSELEY, DOCUMENTED THE ABOVE INFORMATION ACTING A SCRIBE FOR DR. SILVERMAN. I HAVE REVIEWED THE ABOVE DOCUMENT, WRITTEN BY ALEC MOSELEY SCRIBGood AND I VERIFY THAT IT IS ACCURATE. PROCEDURE CODES FA211 ESTABILISHED PATIENT [facility] FACILITY CHARGE G8427 DOC MEDS VERIFIED W/PT OR RE G8730 PAIN ASSESS POS TOOL F/U PLAN DOC DISPOSITION & COMMUNICATION FOLLOW UP 6 WEEKS ELECTRONICALLY SIGNED BY IVY SILVERMAN MD ON 09/28/2016 AT 03:00 PM EDT DISCLAIMER : THIS IS A VISIT SUMMARY EXTRACTED FROM THE [employer] CHART. IT IS NOT A COPY OF THE [employer] PROGRESS NOTE. EVAN
== END ==
LOC: M PAIN 15:40
PROVIDERS: ATTEND Anesthesiology
DX: G90.512 Complex regional pain syndrome I of left upper limb (principal); M79.1 Myalgia; G43.709 Chronic migraine without aura, not intractable, without status migrainosus; I71.4 Abdominal aortic aneurysm, without rupture; D25.9 Leiomyoma of uterus, unspecified; Z98.84 Bariatric surgery status; F17.210 Nicotine dependence, cigarettes, uncomplicated; Z79.891 Long term (current) use of opiate analgesic; Z79.899 Other long term (current) drug therapy; Z88.0 Allergy status to penicillin; Z88.8 Allergy status to other drugs, medicaments and biological substances

== ENCOUNTER → 2016-09-14 | Outpatient (CLI) | payer MEDICARE, MEDICAID ==
--- NOTE | 2016-09-15 00:57 | ECWPNPC ---
PATIENT NAME: HAZEL BURTON : 1970 GENDER: FEMALE VISIT DATE: 09/14/2016 DISCHARGE DATE: 09/14/16 1612 VISIT LOCKED DATE TIME: PHYSICIAN: BRANDON CAMPBELL RESOURCE: BRANDON CAMPBELL REASON FOR APPOINTMENT 1. SHOULDER HISTORY OF PRESENT ILLNESS HISTORY OF PRESENT ILLNESS: PAIN THE PATIENT DESCRIBES THE PAIN... FALL RISK SCREENING: SCREENING :NO FALLS IN THE PAST YEAR GENERAL: HERE FOR F/U AND MANAGEMENT OF PERSISTENT RIGHT SHOULDER PAIN.CT RIGHT SHOULDER DONE 05-28-16 REVIEWED AND SHOWING MODERATE OSTEOARTHRITIS.CONTINUES WITH SEVERE RIGHT SHOULDER PAIN.RATING PAIN VAS 9/10.CURRENTLY USING SOMA 350MG 2-3X DAY AND PERCOCET 5/325 TWO TAB 3 X DAY AND REPORTS LITTLE IMPROVEMENT.DENIES SIDE EFFECTS.DISCUSSED MY CONCERNS WITH DAILY USE OF HIGH DOSE OPIODS.HAD BOTOX INJECTIONS INTO RIGHT SHOULDER A FEW WEEKS AGO THAT AGGREVATED PAIN.PATIENT WILL BE HAVING RIGHT SHOULDER ARTHROSCOP[place] [facility] [place] WILL BE RUNNING OUT OF PAIN MEDICATION EARLY SHE STATES SHE WAS TOLD SHE COULD TAKE TWO AT A TIME AND MDD WAS 3.STATES SHE HAD A DOSE OF PERCOCET THIS AM.INFORMED THAT SHE IS NOT ALLOWED TO TAKE MORE THAN MAX DAILY DOSE UNDER ANY CIRCUMSTANCE. CURRENT MEDICATIONS TAKING NUCYNTA 75 MG TABLET 1 TABLET ORALLY EVERY 6 HRS NEEDE FOR PAIN MDD4, NOTES: 08/20/16 TAKING PERCOCET 5-325 MG TABLET 1 ORALLY EVERY 8H PRN MDD3, NOTES: 08/24/16 06 TAKING TYLENOL PM EXTRA STRENGTH 500-25 MG TABLET 1 TABLET AT BEDTIME NEEDED ORALLY ONCE A DAY, NOTES: 08/23/160 TAKING DICLOFENAC SODIUM CR COMPOUND CREAM TOPICALLY 3-4 X/DAY NEEDED, NOTES: 08/22/16 TAKING BUPROPION HCL ER (SR) 150 MG TABLET EXTENDED RELEASE 12 HOUR 1 TABLET ORALLY TWICE A DAY, NOTES: 08/24/16 06 TAKING VITAMIN D 2000 UNIT TABLET 1 TABLET ORALLY ONCE A DAY, NOTES: 08/24/16 06 TAKING FERROUS SULFATE 325 (65 FE) MG TABLET 1 TABLET ORALLY ONCE A DAY, NOTES: 08/24/16 06 TAKING VITAMIN B-12 1000 MCG TABLET 1 TABLET ORALLY ONCE A DAY, NOTES: 08/24/16599 TAKING CYMBALTA 30 MG CAPSULE DELAYED RELEASE PARTICLES 1 CAPSULE ORALLY BID FOR PAIN, NOTES: 08/24/16 0600 TAKING SOMA 350 MG TABLET 1 TABLET NEEDED ORALLY Q8H PRN MDD3, NOTES: 08/24/16 0600 TAKING GABAPENTIN 300 MG TABLET 1 TAB ORALLY QHS FOR PAIN, NOTES: 08/23/16 2130 MEDICATION LIST REVIEWED AND RECONCILED WITH THE PATIENT PAST MEDICAL HISTORY CRPS LEFT WRIST AND FOREARM UTERINE FIBROIDS AORTIC ANEURISM 4 CM ALLERGIES PENICILLIN (FOR ALLERGIES USE ONLY): RASH ULTRACET: ITCHING RHINOCORT NASAL: SWELLING SURGICAL HISTORY DCS 2006 GASTRIC BYPASS, TUBAL,,LSO,FIBROIDS DCS RE- PLACEMENT 10/28/15 HOSPITALIZATION/MAJOR DIAGNOSTIC PROCEDURE SURG RELATED REVIEW OF SYSTEMS CONSTITUTIONAL: ANY CHANGE IN YOUR MEDICAL CONDITION? NO . CHILLS NO . FEVER NO . INFECTION: DO YOU HAVE NEW INFECTIONS? NO . DO YOU HAVE HISTORY OF MRSA? NO . MUSCULOSKELETAL: ANY NEW PATTERNS OF PAIN OR NUMBNESS? YES, PT STATES SHE HAD BOTOX INJECTIONS DONE. PT STATES PAIN TO RIGHT SHOULDER 10 WHICH STARTED 2 DAYS AFTER BOTOX INJECTIONS. . GASTROENTEROLOGY: ANY NEW CHANGE IN BOWEL CONTROL? NO . GENITOURINARY: ANY NEW CHANGE IN BLADDER CONTROL? NO . IS THERE A CHANCE YOU COULD BE ? NO . HEMATOLOGY/LYMPH: DO YOU TAKE ANY BLOOD THINNERS? (FOR EXAMPLE- COUMADIN, PLAVIX, AGGRENOX, PLATEL, PRADAXA, OR XARELTO) NO . WHEN WAS YOUR LAST DOSE? DATE: TIME: . NEUROLOGY: HAVE YOU FALLEN IN THE PAST 6 MONTHS? YES, TRIPPED AND FELL, PT DENIES MAJOR INJURIES REQUIRING INTERVENTION . ANY NEW EXTREMITY NUMBNESS OR WEAKNESS? NO . CARDIOLOGY: DO YOU HAVE A PACEMAKER OR DEFIBRILLATOR? NO . RESPIRATORY: HAVE YOU BEEN SICK IN THE PAST WEEK? NO . FEVER NO . FLU LIKE SYMPTOMS? NO . COUGH NO . INTEGUMENTARY: DO YOU HAVE ANY RASHES OR OPEN SORES? NO . ALLERGIC/IMMUNO: ARE YOU ALLERGIC TO SHELLFISH OR IV DYE? NO . ANY NEW ALLERGIES? NO . PSYCHIATRIC: DO YOU HAVE THOUGHTS OF HURTING YOURSELF OR SOMEONE ELSE? NO . ARE YOU ABUSED, NEGLECTED, OR IN AN UNSAFE ENVIRONMENT? NO . ENDOCRINOLOGY: ARE YOU DIABETIC? NO . OTHER: DO YOU NEED ANY PRESCRIPTIONS? YES, PT TO DISCUSS PERCOSET WITH Amee CAMPBELL . IF YES, PLEASE LIST: ____ . ANY NEW PROBLEMS WITH YOUR MEDICATIONS? NO . WHEN DID YOU LAST EAT? ____ . WHEN DID YOU LAST DRINK? ____ . WHAT DID YOU LAST DRINK? ____ . NAME OF PERSON DRIVING YOU HOME? ____ . DO YOU HAVE ANY OTHER QUESTIONS OR CONCERNS NO . REVIEWED BY: PROVIDER: BRANDON FREIRE . VITAL SIGNS WT 157.6 LBS, HT 66 IN, BMI 25.43 INDEX, BP 131/83 MM HG, HR 108 /MIN, RR 16 /MIN, TEMP 97.0 F, OXYGEN SAT % 97%, SAFE IN ENV? (Y/N) Y, NA INITIALS SC 14:57, REVIEWED BY: EM. EXAMINATION GENERAL EXAMINATION: LUNGS:LUNG SOUNDS ARE CLEAR. HEART:HEART RATE REGULAR. MUSCULOSKELETAL:*PAIN WITH LIGHT PALPATION RIGHT SHOULDE.POSITIVE FOR TRIGGER POINT RIGHT TRAPEZIUS AND RIGHT STERNOCLEIDOMASTOID.PAIN IN THIS AREA IS INCREASED WITH ROJM RIGHT ARM AND NECK.. ASSESSMENTS PAIN IN RIGHT SHOULDER - M25.511 (PRIMARY) MYOFASCIAL PAIN - M79.1 CHRONIC PRESCRIPTION OPIATE USE - Z79.891 TREATMENT PAIN IN RIGHT SHOULDER REFILL NUCYNTA TABLET, 75 MG, 1 TABLET, ORALLY, EVERY 6 HRS NEEDE FOR PAIN MDD4, 30 DAY(S), 90, REFILLS 0, NOTES: 08/20/16 REFILL SOMA TABLET, 350 MG, 1 TABLET NEEDED, ORALLY, Q8H PRN MDD3, 30 DAY(S), 90, REFILLS 2, NOTES: 08/24/16 06 REFILL CYMBALTA CAPSULE DELAYED RELEASE PARTICLES, 30 MG, 1 CAPSULE, ORALLY, BID FOR PAIN, 30 DAY(S), 60, REFILLS 2, NOTES: 08/24/16 06 REFILL PERCOCET TABLET, 10-325 MG, 1, ORALLY, EVERY 8H PRN MDD3, 30 DAY(S), 90, REFILLS 0, NOTES: 08/24/16 0600 NOTES: ISTOP REGISTRY REVIEWED AND DEMNOSTRATES COMPLLIANCE. BRINGS IN MEDICATIONS WHICH IS APPROPRIATE FOR WHAT WAS DISPENSED. RECENT URINE TOXICOLOGY REVIEWED. NO UNAUTHORIZED MEDICATIONS. NO ILLICIT SUBSTANCES AND PRESCRIBED MEDICATIONS WERE PRESENT. , RISKS AND BENEFITS OF NARCOTIC/OPIOD MEDICATIONS WERE REVIEWED WITH PATIENT - THIS INCLUDES BUT IS NOT LIMITED TO RISK OF DEPENDANCE/DEVELOPMENT OF ADDICTION, MOOD DISTURBANCE AND DEPRESSION, OSTEOPOROSIS, HORMONAL AND LABIDAL CHANGES, RESPIRATORY DEPRESSION AND . PATIENT IS ADVISED NOT TO DRIVE WHILE ON THESE MEDICATIONS.URINE TOX TODAY. PROCEDURE CODES FA211 ESTABILISHED PATIENT [facility] FACILITY CHARGE DISPOSITION & COMMUNICATION FOLLOW UP 4 WEEKS ELECTRONICALLY SIGNED BY MOUNA CHEN ON 09/14/2016 AT 06:32 PM EDT DISCLAIMER : THIS IS A VISIT SUMMARY EXTRACTED FROM THE [employer] CHART. IT IS NOT A COPY OF THE [employer] PROGRESS NOTE. EVAN
== END ==
LOC: M PAIN 14:40
PROVIDERS: ATTEND Nurse Practitioner Family
DX: G89.29 Other chronic pain (principal); M25.511 Pain in right shoulder; M79.1 Myalgia; I71.4 Abdominal aortic aneurysm, without rupture; D25.9 Leiomyoma of uterus, unspecified; G56.02 Carpal tunnel syndrome, left upper limb; Z98.84 Bariatric surgery status; M19.011 Primary osteoarthritis, right shoulder; Z79.891 Long term (current) use of opiate analgesic; Z88.0 Allergy status to penicillin; Z88.8 Allergy status to other drugs, medicaments and biological substances; Z79.899 Other long term (current) drug therapy

== ENCOUNTER → 2016-11-06 | Outpatient (CLI) | payer OTHER | LOC: M PAIN 10:00 | PROVIDERS: ATTEND Anesthesiology | DX: G89.29 Other chronic pain (principal) ==

== ENCOUNTER → 2016-11-13 | Outpatient (CLI) | payer OTHER ==
--- NOTE | 2016-12-16 02:56 | ECWPNPC ---
PATIENT NAME: HAZEL BURTON : 1970 GENDER: FEMALE VISIT DATE: 11/13/2016 DISCHARGE DATE: 11/13/16 1101 VISIT LOCKED DATE TIME: PHYSICIAN: BRANDON CAMPBELL RESOURCE: BRANDON CAMPBELL REASON FOR APPOINTMENT 1. RIGHT SHOULDER HISTORY OF PRESENT ILLNESS HISTORY OF PRESENT ILLNESS: PAIN THE PATIENT DESCRIBES THE PAIN... FALL RISK SCREENING: SCREENING :NO FALLS IN THE PAST YEAR GENERAL: HERE FOR F/U AND MANAGEMENT OF PERSISTENT RIGHT SHOULDER PAIN.CT RIGHT SHOULDER DONE 05-28-16 REVIEWED AND SHOWING MODERATE OSTEOARTHRITIS.CONTINUES WITH SEVERE RIGHT SHOULDER PAIN.RATING PAIN VAS 9/10.CURRENTLY USING SOMA 350MG 2-3X DAY AND PERCOCET 5/325 TWO TAB 3 X DAY AND REPORTS LITTLE IMPROVEMENT.DENIES SIDE EFFECTS.DISCUSSED MY CONCERNS WITH DAILY USE OF HIGH DOSE OPIODS.HAD BOTOX INJECTIONS INTO RIGHT SHOULDER A FEW WEEKS AGO THAT AGGREVATED PAIN.PATIENT WILL BE HAVING RIGHT SHOULDER ARTHROSCOPIC SURGERY IN NEAR FUTURE THROUGH [facility].PATIENT WILL BE RUNNING OUT OF PAIN MEDICATION EARLY SHE STATES SHE WAS TOLD SHE COULD TAKE TWO AT A TIME AND MDD WAS 3.STATES SHE HAD A DOSE OF PERCOCET THIS AM.INFORMED THAT SHE IS NOT ALLOWED TO TAKE MORE THAN MAX DAILY DOSE UNDER ANY CIRCUMSTANCE. CURRENT MEDICATIONS TAKING CYMBALTA 30 MG CAPSULE DELAYED RELEASE PARTICLES 1 CAPSULE ORALLY BID FOR PAIN TAKING TYLENOL PM EXTRA STRENGTH 500-25 MG TABLET 1 TABLET AT BEDTIME NEEDED ORALLY ONCE A DAY TAKING DICLOFENAC SODIUM CR COMPOUND CREAM TOPICALLY 3-4 X/DAY NEEDED TAKING VITAMIN D 2000 UNIT TABLET 1 TABLET ORALLY ONCE A DAY TAKING FERROUS SULFATE 325 (65 FE) MG TABLET 1 TABLET ORALLY ONCE A DAY TAKING VITAMIN B-12 1000 MCG TABLET 1 TABLET ORALLY ONCE A DAY TAKING NUCYNTA 75 MG TABLET 1 TABLET ORALLY EVERY 6 HRS NEEDE FOR PAIN MDD4 TAKING TOPAMAX 25 MG TABLET 1 TABLET ORALLY DAILY TAKING SOMA 350 MG TABLET 1 TABLET NEEDED ORALLY Q8H PRN MDD3 TAKING GABAPENTIN 300 MG TABLET 1 TAB ORALLY QHS FOR PAIN TAKING PERCOCET 5-325 MG TABLET 1 ORALLY EVERY 8H PRN MDD3 TAKING CLONIDINE HCL 0.1 MG TABLET 1 TAB ORALLY Q8H PRN NOT-TAKING BUPROPION HCL ER (SR) 150 MG TABLET EXTENDED RELEASE 12 HOUR 1 TABLET ORALLY TWICE A DAY MEDICATION LIST REVIEWED AND RECONCILED WITH THE PATIENT PAST MEDICAL HISTORY CRPS LEFT WRIST AND FOREARM UTERINE FIBROIDS AORTIC ANEURISM 4 CM MIGRAINES ALLERGIES PENICILLIN (FOR ALLERGIES USE ONLY): RASH ULTRACET: ITCHING RHINOCORT NASAL: SWELLING SURGICAL HISTORY DCS 2006 GASTRIC BYPASS, TUBAL,,LSO,FIBROIDS DCS RE- PLACEMENT 10/28/15 HOSPITALIZATION/MAJOR DIAGNOSTIC PROCEDURE SURG RELATED REVIEW OF SYSTEMS REVIEWED BY: PROVIDER: BRANDON FREIRE . CONSTITUTIONAL: ANY CHANGE IN YOUR MEDICAL CONDITION? NO . CHILLS NO . FEVER NO . INFECTION: DO YOU HAVE NEW INFECTIONS? NO . DO YOU HAVE HISTORY OF MRSA? NO . MUSCULOSKELETAL: ANY NEW PATTERNS OF PAIN OR NUMBNESS? NO . GASTROENTEROLOGY: ANY NEW CHANGE IN BOWEL CONTROL? NO . GENITOURINARY: ANY NEW CHANGE IN BLADDER CONTROL? NO . IS THERE A CHANCE YOU COULD BE ? NO . HEMATOLOGY/LYMPH: DO YOU TAKE ANY BLOOD THINNERS? (FOR EXAMPLE- COUMADIN, PLAVIX, AGGRENOX, PLATEL, PRADAXA, OR XARELTO) NO . WHEN WAS YOUR LAST DOSE? DATE: TIME: . NEUROLOGY: HAVE YOU FALLEN IN THE PAST 6 MONTHS? NO . ANY NEW EXTREMITY NUMBNESS OR WEAKNESS? NO . CARDIOLOGY: DO YOU HAVE A PACEMAKER OR DEFIBRILLATOR? NO . RESPIRATORY: HAVE YOU BEEN SICK IN THE PAST WEEK? NO . FEVER NO . FLU LIKE SYMPTOMS? NO . COUGH NO . INTEGUMENTARY: DO YOU HAVE ANY RASHES OR OPEN SORES? NO . ALLERGIC/IMMUNO: ARE YOU ALLERGIC TO SHELLFISH OR IV DYE? NO . ANY NEW ALLERGIES? NO . PSYCHIATRIC: DO YOU HAVE THOUGHTS OF HURTING YOURSELF OR SOMEONE ELSE? NO . ARE YOU ABUSED, NEGLECTED, OR IN AN UNSAFE ENVIRONMENT? NO . ENDOCRINOLOGY: ARE YOU DIABETIC? NO . OTHER: DO YOU NEED ANY PRESCRIPTIONS? YES, DICLOFENAC . IF YES, PLEASE LIST: ____ . ANY NEW PROBLEMS WITH YOUR MEDICATIONS? NO . WHEN DID YOU LAST EAT? ____ . WHEN DID YOU LAST DRINK? ____ . WHAT DID YOU LAST DRINK? ____ . NAME OF PERSON DRIVING YOU HOME? ____ . DO YOU HAVE ANY OTHER QUESTIONS OR CONCERNS NO . VITAL SIGNS WT 157.6 LBS, HT 66 IN, BMI 25.43 INDEX, BP 126/69 MM HG, HR 103 /MIN, RR 18 /MIN, TEMP 97.7 F, OXYGEN SAT % 98%, NA INITIALS MP 1017, REVIEWED BY: EM. EXAMINATION GENERAL EXAMINATION: LUNGS:LUNG SOUNDS ARE CLEAR. HEART:HEART RATE REGULAR. MUSCULOSKELETAL:*PAIN WITH LIGHT PALPATION RIGHT SHOULDE.POSITIVE FOR TRIGGER POINT RIGHT TRAPEZIUS AND RIGHT STERNOCLEIDOMASTOID.PAIN IN THIS AREA IS INCREASED WITH ROJM RIGHT ARM AND NECK.. ASSESSMENTS PAIN IN RIGHT SHOULDER - M25.511 (PRIMARY) MYOFASCIAL PAIN - M79.1 CHRONIC PRESCRIPTION OPIATE USE - Z79.891 TREATMENT PAIN IN RIGHT SHOULDER CONTINUE NUCYNTA TABLET, 75 MG, 1 TABLET, ORALLY, EVERY 6 HRS NEEDE FOR PAIN MDD4 CONTINUE SOMA TABLET, 350 MG, 1 TABLET NEEDED, ORALLY, Q8H PRN MDD3 CONTINUE PERCOCET TABLET, 5-325 MG, 1, ORALLY, EVERY 8H PRN MDD3 NOTES: ISTOP REGISTRY REVIEWED AND DEMNOSTRATES COMPLLIANCE. BRINGS IN MEDICATIONS WHICH IS APPROPRIATE FOR WHAT WAS DISPENSED. RECENT URINE TOXICOLOGY REVIEWED. NO UNAUTHORIZED MEDICATIONS. NO ILLICIT SUBSTANCES AND PRESCRIBED MEDICATIONS WERE PRESENT. , RISKS AND BENEFITS OF NARCOTIC/OPIOD MEDICATIONS WERE REVIEWED WITH PATIENT - THIS INCLUDES BUT IS NOT LIMITED TO RISK OF DEPENDANCE/DEVELOPMENT OF ADDICTION, MOOD DISTURBANCE AND DEPRESSION, OSTEOPOROSIS, HORMONAL AND LABIDAL CHANGES, RESPIRATORY DEPRESSION AND . PATIENT IS ADVISED NOT TO DRIVE WHILE ON THESE MEDICATIONS. PROCEDURE CODES FA211 ESTABILISHED PATIENT [facility] FACILITY CHARGE G8730 PAIN ASSESS POS TOOL F/U PLAN DOC G8427 DOC MEDS VERIFIED W/PT OR RE DISPOSITION & COMMUNICATION FOLLOW UP 4 WEEKS ELECTRONICALLY SIGNED BY MOUNA CHEN ON 12/15/2016 AT 07:29 PM EDT DISCLAIMER : THIS IS A VISIT SUMMARY EXTRACTED FROM THE [employer] CHART. IT IS NOT A COPY OF THE [employer] PROGRESS NOTE. MTDD
== END ==
LOC: M PAIN 10:00
PROVIDERS: ATTEND Nurse Practitioner Family
DX: G89.29 Other chronic pain (principal); M25.511 Pain in right shoulder; M79.1 Myalgia; G43.909 Migraine, unspecified, not intractable, without status migrainosus; Z79.891 Long term (current) use of opiate analgesic; Z79.899 Other long term (current) drug therapy; Z98.84 Bariatric surgery status; Z88.0 Allergy status to penicillin; Z88.8 Allergy status to other drugs, medicaments and biological substances

== ENCOUNTER → 2016-12-18 | Outpatient (CLI) | payer OTHER ==
--- NOTE | 2016-12-29 01:30 | ECWPNPC ---
PATIENT NAME: HAZEL BURTON : 1970 GENDER: FEMALE VISIT DATE: 12/18/2016 DISCHARGE DATE: 12/18/16 1319 VISIT LOCKED DATE TIME: PHYSICIAN: IVY SILVERMAN RESOURCE: IVY SILVERMAN REASON FOR APPOINTMENT 1. WC MIGRAINES HISTORY OF PRESENT ILLNESS HISTORY OF PRESENT ILLNESS: PAIN THE PATIENT DESCRIBES THE PAIN... 46 YEAR OLD FEMALE PATIENT WITH HISTORY OF CHRONIC WRIST PAIN AND MIGRAINES. PATIENT DESCRIBES THE PAIN SHARP, THROBBING WITH THE PAIN COMING AND GOING AND A CURRENT PAIN SCORE OF 6-8/10. 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 SUBSEQUENTLY THERE WAS ANOTHER INCIDENT WITH A PATIENT A MONTH LATER AND THEN THE PATIENT NOTICED SWELLING AND WAS NOT ABLE TO WORK AFTER. PATIENT WAS SEEN AFTER IN THE PAIN MANAGEMENT ONCE THE CAST WAS REMOVED FROM THE WRIST. PATIENT SAW DR. DOBBINS, WHO STARTED DOING STELLATE GANGLIONS ON THE PATIENT HOWEVER THE CASE WAS THEN TRANSFERRED TO DR. SILVERMAN. SHORTLY AFTER A DCS WAS PLACED AND THE PATIENT WAS DOING WELL. IN 2016 PATIENT NEED A BATTERY REPLACEMENT WHICH TURNED INTO A TOTALLY NEW MACHINE DUE TO THE OLD LEADS NOT CONNECTIONS WITH THE NEW BATTERY. PATIENT STATES THAT THE DCS WORKS BUT SHE IS STILL ON PAIN. PATIENT RECEIVED BOTOX INJECTIONS FOR THE MIGRAINES AND STATES THAT PREVIOUSLY IT HELPED WITH MIGRAINES BUT THIS SESSION DID NOT HELP. PATIENT REPORTS SHE WOULD LIKE TO TRY AGAIN DUE TO HAVING GOOD PAIN RELIEF IN THE PAST. PATIENT REPORTS THE HEADACHE STARTING AT THE NECK AND MOVING UPWARDS AND TRAVELING THROUGH THE SIDE OF HER HEAD TO HER TEMPLES. CURRENTLY THE PATIENT IS USING NUCYNTA AND CYMBALTA FOR PAIN MANAGEMENT. PATIENT DENIES UNEXPLAINABLE WEIGHT LOSS, FEVER, CHILLS, NEW CHANGES ON HER URINARY OR BOWEL CONTROL. FALL RISK SCREENING: SCREENING :NO FALLS IN THE PAST YEAR CURRENT MEDICATIONS TAKING CYMBALTA 30 MG CAPSULE DELAYED RELEASE PARTICLES 1 CAPSULE ORALLY BID FOR PAIN TAKING TYLENOL PM EXTRA STRENGTH 500-25 MG TABLET 1 TABLET AT BEDTIME NEEDED ORALLY ONCE A DAY TAKING DICLOFENAC SODIUM CR COMPOUND CREAM TOPICALLY 3-4 X/DAY NEEDED TAKING VITAMIN D 2000 UNIT TABLET 1 TABLET ORALLY ONCE A DAY TAKING FERROUS SULFATE 325 (65 FE) MG TABLET 1 TABLET ORALLY ONCE A DAY TAKING VITAMIN B-12 1000 MCG TABLET 1 TABLET ORALLY ONCE A DAY TAKING TOPAMAX 25 MG TABLET 1 TABLET ORALLY DAILY TAKING GABAPENTIN 300 MG TABLET 1 TAB ORALLY QHS FOR PAIN TAKING SOMA 350 MG TABLET 1 TABLET NEEDED ORALLY Q8H PRN MDD3 TAKING NUCYNTA 75 MG TABLET 1 TABLET ORALLY EVERY 6 HRS NEEDE FOR PAIN MDD4 TAKING PERCOCET 5-325 MG TABLET 1 ORALLY EVERY 8H PRN MDD3 NOT-TAKING CLONIDINE HCL 0.1 MG TABLET 1 TAB ORALLY Q8H PRN NOT-TAKING BUPROPION HCL ER (SR) 150 MG TABLET EXTENDED RELEASE 12 HOUR 1 TABLET ORALLY TWICE A DAY MEDICATION LIST REVIEWED AND RECONCILED WITH THE PATIENT PAST MEDICAL HISTORY CRPS LEFT WRIST AND FOREARM UTERINE FIBROIDS AORTIC ANEURISM 4 CM MIGRAINES ALLERGIES PENICILLIN (FOR ALLERGIES USE ONLY): RASH ULTRACET: ITCHING RHINOCORT NASAL: SWELLING REVIEW OF SYSTEMS REVIEWED BY: PROVIDER: IVY SILVERMAN MD . CONSTITUTIONAL: ANY CHANGE IN YOUR MEDICAL CONDITION? NO . CHILLS NO . FEVER NO . INFECTION: DO YOU HAVE NEW INFECTIONS? NO . DO YOU HAVE HISTORY OF MRSA? NO . MUSCULOSKELETAL: ANY NEW PATTERNS OF PAIN OR NUMBNESS? YES NO CHANGE IN PAIN ON LEFT SIDE, BUT PT REPORTS NO RELIEF FROM RECENT BOTOX INJECTIONS IN AUGUST, HAS DAILY MIGRAINES. ON RIGHT SIDE, HAS A 1 CM DIMPLING IN RIGHT UPPER ARM/SHOULDER AREA WHICH IS PAINFUL. ALSO REPORTS NUMBNESS/BURNING SENSATION RIGHT ARM. CAN'T LIFT YOUR ARM/SHOULDER OVER SHOULDER HEIGHT. . GASTROENTEROLOGY: ANY NEW CHANGE IN BOWEL CONTROL? NO . GENITOURINARY: ANY NEW CHANGE IN BLADDER CONTROL? NO . IS THERE A CHANCE YOU COULD BE ? NO . HEMATOLOGY/LYMPH: DO YOU TAKE ANY BLOOD THINNERS? (FOR EXAMPLE- COUMADIN, PLAVIX, AGGRENOX, PLATEL, PRADAXA, OR XARELTO) NO . WHEN WAS YOUR LAST DOSE? DATE: TIME: . NEUROLOGY: HAVE YOU FALLEN IN THE PAST 6 MONTHS? NO . ANY NEW EXTREMITY NUMBNESS OR WEAKNESS? NO . CARDIOLOGY: DO YOU HAVE A PACEMAKER OR DEFIBRILLATOR? NO . RESPIRATORY: HAVE YOU BEEN SICK IN THE PAST WEEK? NO . FEVER NO . FLU LIKE SYMPTOMS? NO . COUGH NO . INTEGUMENTARY: DO YOU HAVE ANY RASHES OR OPEN SORES? NO . ALLERGIC/IMMUNO: ARE YOU ALLERGIC TO SHELLFISH OR IV DYE? NO . ANY NEW ALLERGIES? NO . PSYCHIATRIC: DO YOU HAVE THOUGHTS OF HURTING YOURSELF OR SOMEONE ELSE? NO . ARE YOU ABUSED, NEGLECTED, OR IN AN UNSAFE ENVIRONMENT? NO . ENDOCRINOLOGY: ARE YOU DIABETIC? NO . OTHER: DO YOU NEED ANY PRESCRIPTIONS? YES . IF YES, PLEASE LIST: NUCYNTA, DICLOFENAC . ANY NEW PROBLEMS WITH YOUR MEDICATIONS? NO . WHEN DID YOU LAST EAT? ____ . WHEN DID YOU LAST DRINK? ____ . WHAT DID YOU LAST DRINK? ____ . NAME OF PERSON DRIVING YOU HOME? ____ . DO YOU HAVE ANY OTHER QUESTIONS OR CONCERNS NO . VITAL SIGNS WT 150 LBS, HT 66 IN, BMI 24.21 INDEX, BP 128/69 MM HG, HR 72 /MIN, RR 16 /MIN, TEMP 97.5 F, OXYGEN SAT % 98%, SAFE IN ENV? (Y/N) YES, NA INITIALS SC 12:35, REVIEWED BY: BIBIANA. EXAMINATION : PATIENT IS ALERT O X 3 AND COOPERATIVE. THERE IS TENDERNESS IN THE LEFT WRIST WHEN THE PATIENT BENDS HER WRIST. PATIENT IS ABLE TO ABDUCT HER ARMS ONLY TO SHOULDER LEVEL. DIFFICULTIES MOVING LEFT HAND. PATIENT'S HAND COURIER IS REDUCED ON BOTH HANDS. THERE IS TENDERNESS IN THE CERVICAL PARASPINAL MUSCLE GROUP WITH BANDS OF TISSUES, RESTRICTION OF MOVEMENT, AND PRESENCE OF TRIGGER POINTS. PATIENT IS ABLE TO EXTEND HER NECK AT 30 DEGREES AND FLEX AT 50 DEGREES. ASSESSMENTS MYALGIA - M79.1 (PRIMARY) CHRONIC MIGRAINE WITHOUT AURA WITHOUT STATUS MIGRAINOSUS, NOT INTRACTABLE - G43.709 ARM NEUROPATHY. TREATMENT MYALGIA REFILL CYMBALTA CAPSULE DELAYED RELEASE PARTICLES, 30 MG, 1 CAPSULE, ORALLY, BID FOR PAIN, 30 DAY(S), 60, REFILLS 2 REFILL NUCYNTA TABLET, 75 MG, 1 TABLET, ORALLY, EVERY 6 HRS NEEDE FOR PAIN MDD4, 30 DAY(S), 110, REFILLS 0 NOTES: WE DISCUSSED SEVERAL ISSUES WITH MRS. BURTON'S PAIN MANAGEMENT CASE. AT THIS TIME THE PATIENT WILL CONTINUE WITH THE SAME MEDICATION REGIME BEFORE. PATIENT WILL CONTINUE TO USE THE NUCYNTA FOR THE MIGRAINES AND THE SOMATIC PAIN AND THE CYMBALTA FOR THE NEUROPATHIC PAIN. PATIENT WILL RECEIVE 110 TABLETS OF NUCYNTA DUE TO THE PAIN FROM THE HEADACHES. PATIENT WILL HAVE MEDICATION REDUCED AFTER BOTOX INJECTIONS. PATIENT BROKE MEDICATIONS TO TODAY'S VISIT IN THEIR ORIGINAL BOTTLES. PATIENT DENIES ABUSE OF ANY MEDICATION, DENIES USE OF ILLEGAL SUBSTANCES, AND STATES THAT HE IS ONLY USING THE MEDICATION FOR PAIN MANAGEMENT. PATIENT WILL PERFORM A URINE TOXICOLOGY REPORT TODAY. WE DISCUSSED IN DETAIL POSSIBLE INTERVENTIONS THAT MAY AID THE PATIENT IN PAIN RELIEF. WE DISCUSSED MOVING FORWARD WITH BOTOX DUE TO THE PATIENT HAVING EXCELLENT RELIEF FROM PREVIOUS INJECTIONS. I WILL REQUEST BOTOX FOR THE CHRONIC MIGRAINES AND BOOK AFTER APPROVAL. WE DISCUSSED POSSIBLY MOVING THE DCS. PATIENT WILL SPEAK WITH [employer] PRIOR TO REQUESTING ANY APPROVAL TO LOOK FOR READJUSTMENT OF THE STIMULATION. INSTRUCTIONS WERE GIVEN, QUESTIONS WERE ANSWERED, PATIENT REPORTS UNDERSTANDING AND AGREES WITH THE PLAN. I, ALEC MOSELEY, DOCUMENTED THE ABOVE INFORMATION ACTING A SCRIBE FOR DR. SILVERMAN. I HAVE REVIEWED THE ABOVE DOCUMENT, WRITTEN BY ALEC ZAMBRANO AND I VERIFY THAT IT IS ACCURATE. PROCEDURES PN WORKMANS' COMP OPINION IN YOUR OPINION, WAS THE INCIDENT THAT THE PATIENT DESCRIBED THE COMPETENT MEDICAL CAUSE OF THIS INJURY/ILLNESS? YES ARE THE PATIENT'S COMPLAINTS CONSISTENT WITH HIS/HER HISTORY OF THE INJURY/ILLNESS? YES IS THE PATIENT'S HISTORY OF THE INJURY/ILLNESS CONSISTENT WITH YOUR OBJECTIVE FINDING? YES WHAT IS THE PERCENTAGE OF TEMPORARY IMPAIRMENT? TOTAL = 100% IS THE PATIENT WORKING? NO DOCTOR ON SITE: IVY PRICE MD PROCEDURE CODES FA211 ESTABILISHED PATIENT [facility] FACILITY CHARGE G8427 DOC MEDS VERIFIED W/PT OR RE G8730 PAIN ASSESS POS TOOL F/U PLAN DOC DISPOSITION & COMMUNICATION FOLLOW UP BOTOX AFTER APPROVAL ELECTRONICALLY SIGNED BY IVY SILVERMAN MD ON 12/28/2016 AT 07:19 AM EDT DISCLAIMER : THIS IS A VISIT SUMMARY EXTRACTED FROM THE [employer] CHART. IT IS NOT A COPY OF THE [employer] PROGRESS NOTE. EVAN
== END ==
LOC: M PAIN 12:30
PROVIDERS: ATTEND Anesthesiology
DX: G89.29 Other chronic pain (principal); M79.1 Myalgia; G43.709 Chronic migraine without aura, not intractable, without status migrainosus; G43.909 Migraine, unspecified, not intractable, without status migrainosus; Z79.891 Long term (current) use of opiate analgesic; Z79.899 Other long term (current) drug therapy; Z88.0 Allergy status to penicillin; Z88.8 Allergy status to other drugs, medicaments and biological substances

== ENCOUNTER → 2017-03-11 | Outpatient (CLI) | payer MEDICARE, OTHER ==
--- NOTE | 2017-03-30 01:39 | ECWPNPC ---
PATIENT NAME: HAZEL BURTON : 1970 GENDER: FEMALE VISIT DATE: 03/11/2017 DISCHARGE DATE: 03/11/17 1400 VISIT LOCKED DATE TIME: PHYSICIAN: BRANDON CAMPBELL RESOURCE: BRANDON CAMPBELL REASON FOR APPOINTMENT 1. R SHOULDER- NON COMP HISTORY OF PRESENT ILLNESS HISTORY OF PRESENT ILLNESS: PAIN THE PATIENT DESCRIBES THE PAIN... FALL RISK SCREENING: SCREENING :NO FALLS IN THE PAST YEAR GENERAL: HERE FOR F/U AND MANAGEMENT OF PERSISTENT RIGHT SHOULDER PAIN.CT RIGHT SHOULDER DONE 05-28-16 REVIEWED AND SHOWING MODERATE OSTEOARTHRITIS.CONTINUES WITH SEVERE RIGHT SHOULDER PAIN.RATING PAIN VAS 6/10.CURRENTLY USING SOMA 350MG 2-3X DAY AND PERCOCET 5/325 ONE- TWO TAB 3 X DAY NEEDED AND REPORTS SOME IMPROVEMENT.DENIES SIDE EFFECTS.DISCUSSED MY CONCERNS WITH DAILY USE OF HIGH DOSE OPIODS. CURRENT MEDICATIONS TAKING TYLENOL PM EXTRA STRENGTH 500-25 MG TABLET 1 TABLET AT BEDTIME NEEDED ORALLY ONCE A DAY TAKING DICLOFENAC SODIUM CR COMPOUND CREAM TOPICALLY 3-4 X/DAY NEEDED TAKING VITAMIN D 2000 UNIT TABLET 1 TABLET ORALLY ONCE A DAY TAKING FERROUS SULFATE 325 (65 FE) MG TABLET 1 TABLET ORALLY ONCE A DAY TAKING VITAMIN B-12 1000 MCG TABLET 1 TABLET ORALLY ONCE A DAY TAKING TOPAMAX 25 MG TABLET 1 TABLET ORALLY TWICE A DAY TAKING CYMBALTA 30 MG CAPSULE DELAYED RELEASE PARTICLES 1 CAPSULE ORALLY BID FOR PAIN TAKING GABAPENTIN 300 MG TABLET 1 TAB ORALLY QHS FOR PAIN TAKING SOMA 350 MG TABLET 1 TABLET NEEDED ORALLY Q8H PRN MDD3 TAKING PERCOCET 5-325 MG TABLET 1 ORALLY EVERY 8H PRN MDD3 TAKING VITAMIN C 500 MG TABLET 1 TABLET ORALLY ONCE A DAY TAKING NUCYNTA 75 MG TABLET 1 TABLET ORALLY Q6H PRN MDD4 #90 TAB SHOULD LAST 30 DAYS DISCONTINUED CLONIDINE HCL 0.1 MG TABLET 1 TAB ORALLY Q8H PRN DISCONTINUED BUPROPION HCL ER (SR) 150 MG TABLET EXTENDED RELEASE 12 HOUR 1 TABLET ORALLY TWICE A DAY MEDICATION LIST REVIEWED AND RECONCILED WITH THE PATIENT PAST MEDICAL HISTORY CRPS LEFT WRIST AND FOREARM UTERINE FIBROIDS AORTIC ANEURISM 4 CM MIGRAINES ALLERGIES PENICILLIN (FOR ALLERGIES USE ONLY): RASH ULTRACET: ITCHING RHINOCORT NASAL: SWELLING SOCIAL HISTORY GENERAL: TOBACCO USE ARE YOU A:CURRENT SMOKER ARE YOU INTERESTED IN QUITTING?READY TO QUIT COUNSELED THE PATIENT ON TOBACCO USE, CESSATION [id number]/ PATIENT COUNSELED ON THE DANGERS OF TOBACCO USE AND URGED TO QUIT:03/11/2017 VAPORYES CAFFEINE CAFFEINE USE?YES HOW OFTEN AND HOW MUCH? 2-3 CUPS PER DAY LEARNING BARRIERS / SPECIAL NEEDS VISION IMPAIRED?YES :CORRECTIVE LENSES READINESS TO LEARN?YES LEARNING PREFERENCES?NO PAIN CLINIC PFS, CLERGY, PUBLIC HEALTH REFERRALS PFS REFERRAL NEEDED?NO CLERGY REFERRAL NEEDED?NO PUBLIC HEALTH REFERRAL NEEDED?NO WAS THE PROVIDER NOTIFIED OF ANY PERTINENT INFO?YES HAS THE PATIENT BEEN EDUCATED REGARDING HIS/HER PLAN OF CARE?YES HAS THE PATIENT BEEN EDUCATED REGARDING PAIN, THE RISK FOR PAIN, THE IMPORTANCE OF EFFECTIVE PAIN MANAGEMENT, AND THE PAIN ASSESSMENT PROCESS?YES REVIEWED BY: AISHA. PATIENT: ____. ADVANCE DIRECTIVES HEALTH CARE PROXY?YES NAME OF HCP VANI MARTIN CONTACT # FOR HCP [phone] REVIEW OF SYSTEMS REVIEWED BY: PROVIDER: BRANDON FREIRE . CONSTITUTIONAL: ANY CHANGE IN YOUR MEDICAL CONDITION? YES . CHILLS NO . FEVER NO . INFECTION: DO YOU HAVE NEW INFECTIONS? NO . DO YOU HAVE HISTORY OF MRSA? NO . MUSCULOSKELETAL: ANY NEW PATTERNS OF PAIN OR NUMBNESS? NO . GASTROENTEROLOGY: ANY NEW CHANGE IN BOWEL CONTROL? NO . GENITOURINARY: ANY NEW CHANGE IN BLADDER CONTROL? NO . IS THERE A CHANCE YOU COULD BE ? NO . HEMATOLOGY/LYMPH: DO YOU TAKE ANY BLOOD THINNERS? (FOR EXAMPLE- COUMADIN, PLAVIX, AGGRENOX, PLATEL, PRADAXA, OR XARELTO) NO . WHEN WAS YOUR LAST DOSE? DATE: TIME: . NEUROLOGY: HAVE YOU FALLEN IN THE PAST 6 MONTHS? NO . ANY NEW EXTREMITY NUMBNESS OR WEAKNESS? NO . CARDIOLOGY: DO YOU HAVE A PACEMAKER OR DEFIBRILLATOR? NO . RESPIRATORY: HAVE YOU BEEN SICK IN THE PAST WEEK? NO . FEVER NO . FLU LIKE SYMPTOMS? NO . COUGH NO . INTEGUMENTARY: DO YOU HAVE ANY RASHES OR OPEN SORES? NO . ALLERGIC/IMMUNO: ARE YOU ALLERGIC TO SHELLFISH OR IV DYE? NO . ANY NEW ALLERGIES? NO . PSYCHIATRIC: DO YOU HAVE THOUGHTS OF HURTING YOURSELF OR SOMEONE ELSE? NO . ARE YOU ABUSED, NEGLECTED, OR IN AN UNSAFE ENVIRONMENT? NO . ENDOCRINOLOGY: ARE YOU DIABETIC? NO . OTHER: DO YOU NEED ANY PRESCRIPTIONS? NO . IF YES, PLEASE LIST: ____ . ANY NEW PROBLEMS WITH YOUR MEDICATIONS? NO . WHEN DID YOU LAST EAT? ____ . WHEN DID YOU LAST DRINK? ____ . WHAT DID YOU LAST DRINK? ____ . NAME OF PERSON DRIVING YOU HOME? ____ . DO YOU HAVE ANY OTHER QUESTIONS OR CONCERNS NO . VITAL SIGNS WT 142 LBS, HT 66 IN, BMI 22.92 INDEX, BP 100/60 MM HG, HR 81 /MIN, RR 16 /MIN, TEMP 98.1 F, OXYGEN SAT % 96%, SAFE IN ENV? (Y/N) YES, NA INITIALS SC [id number], REVIEWED BY: VD. EXAMINATION GENERAL EXAMINATION: LUNGS:LUNG SOUNDS ARE CLEAR. HEART:HEART RATE REGULAR. MUSCULOSKELETAL:*PAIN WITH LIGHT PALPATION RIGHT SHOULDE.POSITIVE FOR TRIGGER POINT RIGHT TRAPEZIUS AND RIGHT STERNOCLEIDOMASTOID.PAIN IN THIS AREA IS INCREASED WITH ROJM RIGHT ARM AND NECK.. ASSESSMENTS PAIN IN RIGHT SHOULDER - M25.511 (PRIMARY) CHRONIC PRESCRIPTION OPIATE USE - Z79.891 TREATMENT PAIN IN RIGHT SHOULDER CONTINUE CYMBALTA CAPSULE DELAYED RELEASE PARTICLES, 30 MG, 1 CAPSULE, ORALLY, BID FOR PAIN CONTINUE GABAPENTIN TABLET, 300 MG, 1 TAB, ORALLY, QHS FOR PAIN REFILL PERCOCET TABLET, 5-325 MG, 1, ORALLY, EVERY 8H PRN MDD3, 10 DAYS, 30, REFILLS 0 NOTES: ISTOP REGISTRY REVIEWED AND DEMNOSTRATES COMPLLIANCE. BRINGS IN MEDICATIONS WHICH IS APPROPRIATE FOR WHAT WAS DISPENSED. RECENT URINE TOXICOLOGY REVIEWED. NO UNAUTHORIZED MEDICATIONS. NO ILLICIT SUBSTANCES AND PRESCRIBED MEDICATIONS WERE PRESENT. , RISKS AND BENEFITS OF NARCOTIC/OPIOD MEDICATIONS WERE REVIEWED WITH PATIENT - THIS INCLUDES BUT IS NOT LIMITED TO RISK OF DEPENDANCE/DEVELOPMENT OF ADDICTION, MOOD DISTURBANCE AND DEPRESSION, OSTEOPOROSIS, HORMONAL AND LABIDAL CHANGES, RESPIRATORY DEPRESSION AND . PATIENT IS ADVISED NOT TO DRIVE WHILE ON THESE MEDICATIONS. PROCEDURE CODES FA211 ESTABILISHED PATIENT [facility] FACILITY CHARGE G8730 PAIN ASSESS POS TOOL F/U PLAN DOC G8427 DOC MEDS VERIFIED W/PT OR RE DISPOSITION & COMMUNICATION FOLLOW UP 4 WEEKS ELECTRONICALLY SIGNED BY MOUNA CHEN ON 03/29/2017 AT 01:02 PM EST DISCLAIMER : THIS IS A VISIT SUMMARY EXTRACTED FROM THE [employer] CHART. IT IS NOT A COPY OF THE [employer] PROGRESS NOTE. EVAN
== END ==
LOC: M PAIN 13:15
PROVIDERS: ATTEND Nurse Practitioner Family
DX: G89.29 Other chronic pain (principal); M25.511 Pain in right shoulder; Z79.891 Long term (current) use of opiate analgesic; G56.02 Carpal tunnel syndrome, left upper limb; I71.4 Abdominal aortic aneurysm, without rupture; G43.909 Migraine, unspecified, not intractable, without status migrainosus; F17.210 Nicotine dependence, cigarettes, uncomplicated; Z79.899 Other long term (current) drug therapy; Z88.0 Allergy status to penicillin; Z88.8 Allergy status to other drugs, medicaments and biological substances

== ENCOUNTER → 2017-03-11 | Outpatient (CLI) | payer OTHER ==
--- NOTE | 2017-03-29 00:03 | ECWPNPC ---
PATIENT NAME: HAZEL BURTON : 1970 GENDER: FEMALE VISIT DATE: 03/11/2017 DISCHARGE DATE: 03/11/17 1312 VISIT LOCKED DATE TIME: PHYSICIAN: IVY SILVERMAN RESOURCE: IVY SILVERMAN REASON FOR APPOINTMENT 1. W/C, MIGRANES/LEFT HAND WRIST HISTORY OF PRESENT ILLNESS HISTORY OF PRESENT ILLNESS: PAIN THE PATIENT DESCRIBES THE PAIN... 46 YEAR OLD FEMALE PATIENT WITH HISTORY OF CHRONIC WRIST PAIN AND MIGRAINES. PATIENT DESCRIBES THE PAIN SHARP, THROBBING WITH THE PAIN COMING AND GOING AND A CURRENT PAIN SCORE OF 6-8/10. 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 SUBSEQUENTLY THERE WAS ANOTHER INCIDENT WITH A PATIENT A MONTH LATER AND THEN THE PATIENT NOTICED SWELLING AND WAS NOT ABLE TO WORK AFTER. PATIENT WAS SEEN AFTER IN THE PAIN MANAGEMENT ONCE THE CAST WAS REMOVED FROM THE WRIST. PATIENT SAW DR. DOBBINS, WHO STARTED DOING STELLATE GANGLIONS ON THE PATIENT HOWEVER THE CASE WAS THEN TRANSFERRED TO DR. SILVERMAN. SHORTLY AFTER A DCS WAS PLACED AND THE PATIENT WAS DOING WELL. IN 2016 PATIENT NEED A BATTERY REPLACEMENT WHICH TURNED INTO A TOTALLY NEW MACHINE DUE TO THE OLD LEADS NOT CONNECTIONING WITH THE NEW BATTERY. PATIENT STATES THAT THE DCS WORKS BUT SHE IS STILL IN PAIN. PATIENT RECEIVED BOTOX INJECTIONS FOR THE MIGRAINES AND STATES THAT PREVIOUSLY IT HELPED WITH MIGRAINES BUT SHE HAS NOT HAD BOTOX IN 6 MONTHES AND STATES THAT SHE HAS MIGRAINES ALMOST EVERY DAY. PATIENT REPORTS THE HEADACHE STARTING AT THE NECK AND MOVING UPWARDS AND TRAVELING THROUGH THE SIDE OF HER HEAD TO HER TEMPLES. CURRENTLY THE PATIENT IS USING NUCYNTA AND CYMBALTA FOR PAIN MANAGEMENT. PATIENT DENIES UNEXPLAINABLE WEIGHT LOSS, FEVER, CHILLS, NEW CHANGES ON HER URINARY OR BOWEL CONTROL. FALL RISK SCREENING: SCREENING :NO FALLS IN THE PAST YEAR CURRENT MEDICATIONS TAKING TYLENOL PM EXTRA STRENGTH 500-25 MG TABLET 1 TABLET AT BEDTIME NEEDED ORALLY ONCE A DAY TAKING DICLOFENAC SODIUM CR COMPOUND CREAM TOPICALLY 3-4 X/DAY NEEDED TAKING VITAMIN D 2000 UNIT TABLET 1 TABLET ORALLY ONCE A DAY TAKING FERROUS SULFATE 325 (65 FE) MG TABLET 1 TABLET ORALLY ONCE A DAY TAKING VITAMIN B-12 1000 MCG TABLET 1 TABLET ORALLY ONCE A DAY TAKING TOPAMAX 25 MG TABLET 1 TABLET ORALLY TWICE A DAY TAKING CYMBALTA 30 MG CAPSULE DELAYED RELEASE PARTICLES 1 CAPSULE ORALLY BID FOR PAIN TAKING GABAPENTIN 300 MG TABLET 1 TAB ORALLY QHS FOR PAIN TAKING NUCYNTA 75 MG TABLET 1 TABLET ORALLY Q6H PRN MDD4 #90 TAB SHOULD LAST 30 DAYS TAKING SOMA 350 MG TABLET 1 TABLET NEEDED ORALLY Q8H PRN MDD3 TAKING PERCOCET 5-325 MG TABLET 1 ORALLY EVERY 8H PRN MDD3 TAKING VITAMIN C 500 MG TABLET 1 TABLET ORALLY ONCE A DAY NOT-TAKING CLONIDINE HCL 0.1 MG TABLET 1 TAB ORALLY Q8H PRN NOT-TAKING BUPROPION HCL ER (SR) 150 MG TABLET EXTENDED RELEASE 12 HOUR 1 TABLET ORALLY TWICE A DAY MEDICATION LIST REVIEWED AND RECONCILED WITH THE PATIENT PAST MEDICAL HISTORY CRPS LEFT WRIST AND FOREARM UTERINE FIBROIDS AORTIC ANEURISM 4 CM MIGRAINES ALLERGIES PENICILLIN (FOR ALLERGIES USE ONLY): RASH ULTRACET: ITCHING RHINOCORT NASAL: SWELLING SURGICAL HISTORY DCS 2006 GASTRIC BYPASS, TUBAL,,LSO,FIBROIDS DCS RE- PLACEMENT 10/28/15 SOCIAL HISTORY GENERAL: TOBACCO USE ARE YOU A:CURRENT SMOKER ARE YOU INTERESTED IN QUITTING?READY TO QUIT COUNSELED THE PATIENT ON TOBACCO USE, CESSATION [id number]/30/2017 PATIENT COUNSELED ON THE DANGERS OF TOBACCO USE AND URGED TO QUIT:03/11/2017 VAPORYES CAFFEINE CAFFEINE USE?YES HOW OFTEN AND HOW MUCH? 2-3 CUPS PER DAY LEARNING BARRIERS / SPECIAL NEEDS VISION IMPAIRED?YES :CORRECTIVE LENSES READINESS TO LEARN?YES LEARNING PREFERENCES?NO PAIN CLINIC PFS, CLERGY, PUBLIC HEALTH REFERRALS PFS REFERRAL NEEDED?NO CLERGY REFERRAL NEEDED?NO PUBLIC HEALTH REFERRAL NEEDED?NO WAS THE PROVIDER NOTIFIED OF ANY PERTINENT INFO?YES REVIEWED BY: AISHA. PATIENT: ____. ADVANCE DIRECTIVES HEALTH CARE PROXY?YES NAME OF HCP VANI MARTIN JR CONTACT # FOR HCP [phone] HOSPITALIZATION/MAJOR DIAGNOSTIC PROCEDURE SURG RELATED REVIEW OF SYSTEMS REVIEWED BY: PROVIDER: . CONSTITUTIONAL: ANY CHANGE IN YOUR MEDICAL CONDITION? YES, COLONOSCOPY TO BE DONE DUE TO ENLARGED INTESTINE ON CT . CHILLS NO . FEVER NO . INFECTION: DO YOU HAVE NEW INFECTIONS? NO . DO YOU HAVE HISTORY OF MRSA? NO . MUSCULOSKELETAL: ANY NEW PATTERNS OF PAIN OR NUMBNESS? NO . GASTROENTEROLOGY: ANY NEW CHANGE IN BOWEL CONTROL? NO . GENITOURINARY: ANY NEW CHANGE IN BLADDER CONTROL? NO . IS THERE A CHANCE YOU COULD BE ? NO . HEMATOLOGY/LYMPH: DO YOU TAKE ANY BLOOD THINNERS? (FOR EXAMPLE- COUMADIN, PLAVIX, AGGRENOX, PLATEL, PRADAXA, OR XARELTO) NO . WHEN WAS YOUR LAST DOSE? DATE: TIME: . NEUROLOGY: HAVE YOU FALLEN IN THE PAST 6 MONTHS? NO . ANY NEW EXTREMITY NUMBNESS OR WEAKNESS? NO . CARDIOLOGY: DO YOU HAVE A PACEMAKER OR DEFIBRILLATOR? NO . RESPIRATORY: HAVE YOU BEEN SICK IN THE PAST WEEK? NO . FEVER NO . FLU LIKE SYMPTOMS? NO . COUGH NO . INTEGUMENTARY: DO YOU HAVE ANY RASHES OR OPEN SORES? NO . ALLERGIC/IMMUNO: ARE YOU ALLERGIC TO SHELLFISH OR IV DYE? NO . ANY NEW ALLERGIES? NO . PSYCHIATRIC: DO YOU HAVE THOUGHTS OF HURTING YOURSELF OR SOMEONE ELSE? NO . ARE YOU ABUSED, NEGLECTED, OR IN AN UNSAFE ENVIRONMENT? NO . ENDOCRINOLOGY: ARE YOU DIABETIC? NO . OTHER: DO YOU NEED ANY PRESCRIPTIONS? YES . IF YES, PLEASE LIST: NUCYNTA, DICLOFENAC CREAM . ANY NEW PROBLEMS WITH YOUR MEDICATIONS? NO . WHEN DID YOU LAST EAT? ____ . WHEN DID YOU LAST DRINK? ____ . WHAT DID YOU LAST DRINK? ____ . NAME OF PERSON DRIVING YOU HOME? ____ . DO YOU HAVE ANY OTHER QUESTIONS OR CONCERNS NO . VITAL SIGNS WT 142 LBS, HT 66 IN, BMI 22.92 INDEX, BP 100/60 MM HG, HR 81 /MIN, RR 16 /MIN, TEMP 98.1 F, OXYGEN SAT % 96%, NA INITIALS SC 12:00, REVIEWED BY: LADY. EXAMINATION : PATIENT IS ALERT O X 3 AND COOPERATIVE. THERE IS TENDERNESS IN THE LEFT WRIST WHEN THE PATIENT BENDS HER WRIST. PATIENT IS ABLE TO ABDUCT HER ARMS ONLY TO SHOULDER LEVEL. DIFFICULTIES MOVING LEFT HAND. PATIENT'S HAND PROJECT FINANCE ANALYST IS REDUCED ON BOTH HANDS. THERE IS TENDERNESS IN THE CERVICAL PARASPINAL MUSCLE GROUP WITH BANDS OF TISSUES, RESTRICTION OF MOVEMENT, AND PRESENCE OF TRIGGER POINTS. PATIENT IS ABLE TO EXTEND HER NECK AT 30 DEGREES AND FLEX AT 50 DEGREES. ASSESSMENTS CHRONIC MIGRAINE WITHOUT AURA WITHOUT STATUS MIGRAINOSUS, NOT INTRACTABLE - G43.709 (PRIMARY) MYALGIA - M79.1 TREATMENT CHRONIC MIGRAINE WITHOUT AURA WITHOUT STATUS MIGRAINOSUS, NOT INTRACTABLE NOTES: WE DISCUSSED SEVERAL ISSUES WITH MRS. BURTON'S PAIN MANAGEMENT CASE. AT THIS TIME THE PATIENT WILL CONTINUE WITH THE SAME MEDICATION REGIME BEFORE. PATIENT WILL RECEIVE AN INCREASE IN HER NUCYNTA FROM 75 MG TO 100 MG DUE TO THE SEVERE PAIN THE PATIENT IS HAVING FROM THE MIGRAINES AND THE SOMATIC PAIN FROM THE NECK. PATIENT BROUGHT HER MEDICATIONS TO TODAY'S VISIT IN THEIR ORIGINAL BOTTLES. PATIENT DENIES ABUSE OF ANY MEDICATION, DENIES USE OF ILLEGAL SUBSTACNES, AND STATES THAT SHE IS ONLY USING THE MEDICATION FOR PAIN MANAGEMENT. URINE TOXICOLOGY REPORT DONE ON 12/25/16 SHOWS CONSISTENT RESULTS WITH THE PATIENT'S MEDICATION LIST. AT THIS TIME I WOULD LIKE TO PROCEED WITH BOTOX FOR THE CHRONIC MIGRAINES. PATIENT REPORTS HAVING SENSITIVITY TO LIGHT, NAUSEA, SENSITIVITY TO SOUND WELL DIZZY SPELLS WHEN LIFTING HER HEAD. WE DISCUSSED THE RISKS, BENENFITS, AND ALTERNATIVES OF THE BOTOX AND THE PATIENT WOULD LIKE TO PROCEED AT THIS TIME. INSTRUCTIONS WERE GIVEN, QUESTIONS WERE ANSWERED, PATIENT REPORTS UNDERSTANDING AND AGREES WITH THE PLAN. I, ALEC MOSELEY, DOCUMENTED THE ABOVE INFORMATION ACTING A SCRIBE FOR DR. SILVERMAN. I HAVE REVIEWED THE ABOVE DOCUMENT, WRITTEN BY ALEC ZAMBRANO AND I VERIFY THAT IT IS ACCURATE. MYALGIA REFILL NUCYNTA TABLET, 100 MG, 1 TABLET, ORALLY FOR PAIN, Q6H PRN MDD3, 30 DAYS, 90, REFILLS 0 PROCEDURE CODES FA211 ESTABILISHED PATIENT [facility] FACILITY CHARGE G8427 DOC MEDS VERIFIED W/PT OR RE G8730 PAIN ASSESS POS TOOL F/U PLAN DOC DISPOSITION & COMMUNICATION FOLLOW UP 3 WEEKS ELECTRONICALLY SIGNED BY IVY SILVERMAN MD ON 03/28/2017 AT 07:58 PM EST DISCLAIMER : THIS IS A VISIT SUMMARY EXTRACTED FROM THE [employer] CHART. IT IS NOT A COPY OF THE [employer] PROGRESS NOTE. MTDD
== END ==
LOC: M PAIN 11:45
PROVIDERS: ATTEND Anesthesiology
DX: G89.29 Other chronic pain (principal); G43.709 Chronic migraine without aura, not intractable, without status migrainosus; M79.1 Myalgia; G56.02 Carpal tunnel syndrome, left upper limb; I71.4 Abdominal aortic aneurysm, without rupture; Z98.84 Bariatric surgery status; F17.210 Nicotine dependence, cigarettes, uncomplicated; Z88.0 Allergy status to penicillin; Z88.8 Allergy status to other drugs, medicaments and biological substances; Z79.891 Long term (current) use of opiate analgesic; Z79.899 Other long term (current) drug therapy

== ENCOUNTER → 2017-04-07 | Outpatient (CLI) | payer OTHER ==
[~2017-04-07] MED LIST changes: +BOTULINUM INJ 100 UNITS (J0585) IM; -GABA-279 PO; -GABA-282 PO; -NUCY75TA3 PO; -TYLE1TAB5 PO; +diazePAM 5 MG TAB As Ordered; +oxyCODONE 5MG TAB As Ordered
== END ==
LOC: M PAIN 13:00
DX: G89.29 Other chronic pain (principal); G43.709 Chronic migraine without aura, not intractable, without status migrainosus; G56.02 Carpal tunnel syndrome, left upper limb; D25.9 Leiomyoma of uterus, unspecified; F17.210 Nicotine dependence, cigarettes, uncomplicated; I71.4 Abdominal aortic aneurysm, without rupture; Z79.891 Long term (current) use of opiate analgesic; Z79.899 Other long term (current) drug therapy; Z88.0 Allergy status to penicillin; Z88.8 Allergy status to other drugs, medicaments and biological substances
CPT/HCPCS: 64615; J0585

== ENCOUNTER → 2017-07-06 | Outpatient (CLI) | payer OTHER | LOC: M PAIN 10:45 | DX: G43.709 Chronic migraine without aura, not intractable, without status migrainosus (principal); Z79.891 Long term (current) use of opiate analgesic; Z79.899 Other long term (current) drug therapy; Z88.0 Allergy status to penicillin; Z88.8 Allergy status to other drugs, medicaments and biological substances; Z86.79 Personal history of other diseases of the circulatory system | CPT/HCPCS: G0463 ==

== ENCOUNTER → 2017-08-05 | Outpatient (CLI) | payer MEDICARE, OTHER | LOC: M PAIN 11:15 | DX: G89.29 Other chronic pain (principal); M25.511 Pain in right shoulder; D25.9 Leiomyoma of uterus, unspecified; G43.909 Migraine, unspecified, not intractable, without status migrainosus; F17.210 Nicotine dependence, cigarettes, uncomplicated; Z98.84 Bariatric surgery status; Z79.891 Long term (current) use of opiate analgesic; Z79.899 Other long term (current) drug therapy; Z88.0 Allergy status to penicillin; Z88.8 Allergy status to other drugs, medicaments and biological substances | CPT/HCPCS: G0463 ==

== ENCOUNTER → 2017-08-26 | Outpatient (CLI) | payer OTHER, MEDICARE | LOC: M PAIN 13:00 | DX: G43.709 Chronic migraine without aura, not intractable, without status migrainosus (principal); F17.200 Nicotine dependence, unspecified, uncomplicated; Z79.891 Long term (current) use of opiate analgesic; Z79.899 Other long term (current) drug therapy; Z88.0 Allergy status to penicillin; Z88.8 Allergy status to other drugs, medicaments and biological substances; Z86.79 Personal history of other diseases of the circulatory system | CPT/HCPCS: J0585 ==